=== PATIENT | female | born 1985 | race African-American/Black ===

== ENCOUNTER 2022-07-27 18:43 | Emergency (ER) | payer OTHER, SELFPAY ==
[2022-07-27 18:51] VITALS: BP 179/110; PULSE 114; RESP 20; TEMP 36.8; O2SAT 97; BMI 40.5
[2022-07-27 22:15] VITALS: BP 173/112; PULSE 88; RESP 18; TEMP 36.2; O2SAT 99
--- NOTE | 2022-07-27 22:32 | PC.NURSE ---
pt c/o bumps and itching in back of head (scalp) and neck [facility] came in to the building she resides in for reasons unknown to her concerned she might have mites aox4 no apparent distress resting quietly w/ s/o at bedside
--- NOTE | 2022-07-27 22:39 | ED_ITS ---
HPI - General Adult General Chief complaint: General Medical Stated complaint: Scabs back of neck/head Time Seen by Provider: 07/27/22 22:09 Source: patient Mode of arrival: ambulatory Limitations: no limitations History of Present Illness HPI narrative: 37-year-old female complaining of itchiness and dry scan on the back of her neck at the hairline, patient was shaving part of her then start to become itchy and bumpy now. Related Data Previous Rx's Medication Instructions Recorded mupirocin 2 % topical ointment 1 appl topical TID #22 grams 07/27/22 Allergies Allergy/AdvReac Type Severity Reaction Status Date / Time acetaminophen [From TYLENOL] Allergy Unknown ITCHY Unverified 11/22/19 15:41 codeine [CODEINE] Allergy Unknown RASH Unverified 11/22/19 15:41 Review of Systems Review of Systems: all other systems are reviewed and are negative Constitutional: Reports as per HPI and Reports no additional constitutional complaints Eyes: Reports as per HPI and Reports no additional eye complaints Reports system reviewed and no additional complaints, except as documented Cardiovascular: Reports as per HPI and Reports no additional cardiovascular complaints Respiratory: Reports as per HPI and Reports no additional respiratory complaints Gastrointestinal: Reports as per HPI and Reports no additional gastrointestinal complaints Genitourinary: Reports no additional female genitourinary complaints Musculoskeletal: Reports no additional musculoskeletal complaints Skin/Breast: Reports system reviewed and no additional complaints, except as docu Psychiatric: Reports no additional psychiatric complaints Endocrine: Reports no additional endocrine complaints Hematologic/Lymphatic: Reports no additional hematologic/lymphatic complaints Allergic/Immunologic: Reports no additional allergic/immunologic complaints Reports system reviewed and no additional complaints, except as documented and Reports Abnormal speech present [facility] Social History Social History Alcohol intake: unknown Smoked in Last 30 Days: No Use of substances other than those prescribed or required for medical reasons: Unknown Advance Directives: No Advance Directives Information Provided: No Physical Exam ED Vital Signs: Vital Signs - 24 hr 07/27/22 18:51 07/27/22 22:15 Temperature 98.3 F 97.1 F Pulse Rate 114 H 88 Respiratory Rate 20 18 Blood Pressure 179/110 H 173/112 H Pulse Oximetry 97 99 Oxygen Delivery Method Room Air Room Air BMI result Body Mass Index 40.5 vital signs have been reviewed as appeared to be correct. Blood pressure elevated. Heart rate normal. Respiration rate normal. Temperature normal. Oxygen saturation normal. Appearance: Alert. Oriented X3. No acute distress. Head: Normal external exam. Normocephalic. Atraumatic. No Donis signs noted. No raccoon eyes noted Eyes: PERRLA. EOMI. Conjunctiva and sclera normal. Eyelids normal. ENT: TM's Normal. Pharynx normal. Uvula midline. Moist mucous membranes. No trismus noted. No drooling noted. No muffled voice noted. Neck: Normal inspection. Neck supple. FROM. No adenopathy. Thyroid Normal. No meningeal signs. No neck mass noted. CVS: Normal heart rate and rhythm. Heart sound normal. No murmurs noted. Pulses normal throughout. Respiratory: No respiratory distress. Painless inspiration. Breath sounds normal. No wheezes/rales/rhonchi noted. Chest nontender. No accessory muscle usage noted or decreased air movement noted. Abdomen: Soft and nontender. Bowel sounds normal in all 4 quadrants. No distention noted. No organomegaly noted. No visible injury noted. Back: No CVA tenderness. Full range of motion noted. Skin: maculopapular rash at the hairline at the base of the scalp, no fluctuation. Extremities: No lower extremity edema. Extremities exhibit normal range of motion. Extremities nontender. Neuro: Oriented X 3. Cranial nerve exam: II-XII are grossly intact No motor deficit. No sensory deficit. Reflexes normal. Course Course Course Narrative: folliculitis will start the patient on mupirocin appointment. Patient was instructed to follow-up with her PCP for better management of her blood pressure. Medical Decision Making Differential Diagnosis Differential Diagnoses: The differential diagnosis associated with the presentation includes ( Folliculitis) Discharge Plan Discharge Clinical Impression: Folliculitis, Essential hypertension Patient Disposition: Home, Self-Care Instructions: Folliculitis (ED) Additional Instructions: for follow-up with primary doctor for outpatient blood pressure management. Prescriptions: New mupirocin 2 % ointment 1 appl topical TID Qty: 22 0RF
== END 2022-07-27 22:53 | disposition home or self-care (01) ==
PROVIDERS: Emergency Provider Emergency Medicine
DX: L73.9 Follicular disorder, unspecified (principal); I10 Essential (primary) hypertension
CPT/HCPCS: 99283; 99284

== ENCOUNTER 2022-11-04 13:47 | Emergency (ER) | payer OTHER, SELFPAY ==
[2022-11-04 14:31] VITALS: BP 180/106; BP 186/110; PULSE 116; PULSE 165; RESP 20; TEMP 37.2; O2SAT 97; O2SAT 98; BMI 31.9
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
--- OUTSIDE RECORDS SUMMARY | 2022-11-04 16:47 | XMS_ITS | Continuity of Care Document ---
Author Name Unknown Organization [facility] Address [address] [place] [address]- Care Team Providers Care Automatic Paint Sprayer Operator Name Role Phone Nisa Pierce MD Primary Care Phys[id number] Date[facility] - 11/01/20 [facility] [address] [place], [place] [address] Allergies, Adverse Reactions, Alerts Substance Reaction Severity Status codeine itchiness Active Medications amitriptyline 75 mg oral tablet 1 tablet = 75 mg, By Mouth, 2 times a day, # 60 tablet, 11 Refills, Maintenance, 02/02/16 11:28:18,Tablet Start Date: 02/02/16 Status: Ordered COMMODE COMMODE, See Instructions, # 1 each, Refills 0, Tot. Refills 0, Maintenance, Dx: Lower Ext Weakness-R29.898 and Gait Instability-R26.81, Ht: 5'4 Wt: 203 lbs, Length of need: Lifetime, 08/01/15 14:25:43, Compound Start Date: 08/01/15 Status: Ordered Cymbalta 30 mg oral enteric coated capsule 1 capsule = 30 mg, By Mouth, Daily, increase to 2 pills daily after 1 week, # 60 capsule, 2 Refills, Maintenance, 02/02/16 11:28:10, EC Capsule Start Date: 02/02/16 Status: Ordered Ibuprofen Maintenance, 11/27/13 13:52:32 Start Date: 11/27/13 Status: Ordered ProAir HFA 90 mcg/inh inhalation aerosol with adapter 2, puffs, Inhalation, Every 6 hours, PRN, # 8.5 Gm, Refills 0, Tot. Refills 0, Maintenance, 02/21/19 10:35:00 EST, Aerosol, Route to Pharmacy Electronically, [id number], [facility]/pharmacy #[id number], 162.56, cm, 02/21/19 9:48:00 EST, H... Start Date: 02/21/19 Status: Ordered raised toilet seat raised toilet seat, See Instructions, # 1 each, Refills 0, Tot. Refills 0, Maintenance, dx; chronicneck pain height; 5'4 weight; 183 lbs length of need; lifetime, 04/11/14 19:07:59, Compound Start Date: 04/11/14 Status: Ordered ranitidine 75 mg oral tablet 1 tablet = 75 mg, By Mouth, 2 times a day, take 30 minutes before meal, # 60 tablet, 11 Refills, Maintenance, 02/02/16 11:28:17, Tablet Start Date: 02/02/16 Status: Ordered ROLLATOR WALKER ROLLATOR WALKER, See Instructions, # 1 each, Refills 0, Tot. Refills 0, Maintenance, Dx: Lower Ext Weakness-R29.898 and Gait Instability-R26.81, Ht: 5'4 Wt: 203 lbs, Length of need: Lifetime, 08/01/15 14:21:42, Compound Start Date: 08/01/15 Status: Ordered Problem List Condition Effective Dates Status Health Status Inform ant Neck pain, chronic(Confirmed) Active Depression(Confirmed) Active Social History Social History Type Response Smoking Status Current every day ken taylor entered on: 02/13/14 Sex
--- OUTSIDE RECORDS SUMMARY | 2022-11-04 16:48 | XMS_ITS | Continuity of Care Document ---
Author Name Unknown Organization [facility] Adult [facility] Address [address] [place] [address]- Care Team Providers Care Equipment Washer Name Role Phone Robby Naik MD Primary Care Physician Encounter [facility] Date(s): 02/21/19 - 04/08/19 [facility] [address] [place] [address]- [facility] Attending Physician: Not on Staff, Attending MD Allergies, Adverse Reactions, Alerts Substance Reaction Severity [...] 10:35:00 EST, Aerosol, Route to Pharmacy Electronically, [id number], [facility]/pharmacy #[id number], 162.56, cm, 02/21/19 9:48:00 EST, H... [...]
--- OUTSIDE RECORDS SUMMARY | 2022-11-04 16:48 | XMS_ITS | Continuity of Care Document ---
Author Name Unknown Organization [facility] Adult [facility] Address [address] [place] [address]- Care Team Providers Care Centrifugal Separator Name Role Phone Nisa Pierce MD Primary Care Physician Encounter [facility] Date(s): 10/13/20 - 11/12/20 [facility] [address] [place], [place] [address] Attending Physician: Antonio Carey Admitting Physician: AdmAntonio high Referring Physician: AdmtrAntonio Allergies, Adverse Reactions, Alerts Substance Reaction Severity [...] 10:35:00 EST, Aerosol, Route to Pharmacy Electronically, [id number], [facility]/pharmacy #[id number], 162.56, cm, 02/21/19 9:48:00 EST, [...]
--- OUTSIDE RECORDS SUMMARY | 2022-11-04 16:48 | XMS_ITS | Continuity of Care Document ---
Author Name Unknown Organization [facility] Adult [facility] Address [address] [place] [address]- Care Team Providers Care Waste Cotton Cleaner Name Role Phone Nisa Pierce MD Primary Care [id number] Date(s): 10/02/20 - 11/12/20 [facility] [address] [place], [place] [address] Attending Physician: Herbert Morales Admitting Physician: Herbert Morales Allergies, Adverse Reactions, Alerts Substance Reaction Severity [...] 10:35:00 EST, Aerosol, Route to Pharmacy Electronically, [id number], [facility]/pharmacy #[id number], 162.56, cm, 02/21/19 9:48:00 EST, [...]
--- OUTSIDE RECORDS SUMMARY | 2022-11-04 16:48 | XMS_ITS | Continuity of Care Document ---
Author Name Unknown Organization [facility] Adult [facility] Address [address] [place] [address]- Care Team Providers Care Gynaecological Oncologist Name Role Phone Nisa Pierce MD Primary Care Physician [phone] Encounter [facility] Date(s): 03/11/22 - 04/10/22 [facility] [address] [place], [place] [address] Attending Physician: Admanila, Antonio Admitting Physician: Admtr, Ar8 Referring Physician: Admtr, Ar8 Allergies, Adverse Reactions, Alerts Substance Reaction Severity Status codeine itchiness Active Immunizations Given and Recorded Vaccine Date Status Refusal Reason SARS-CoV-2 (COVID-19) mRNA-1273 vaccine 01/20/21 R ecorded tetanus-diphtheria toxoids (Td) 10/31/12 Recorded Medications amitriptyline 75 mg oral tablet 1 [...] EC Capsule Start Date: 02/02/16 Status: Ordered gabapentin 300 mg oral capsule 300 mg, 1, capsule, By Mouth, 3 times a day, Begin taking at night time, if tolerated take up to 3x/day, # 90 capsule, Refills 1, Tot. Refills 1, Maintenance, 02/02/22 17:14:00 EST, Route to PharmacyElectronically, [facility], Par... Start Date: 02/02/22 Status: Ordered hydrOXYzine hydrochloride 25 mg oral tablet 1 capsule, By Mouth, 4 times a day, PRN for itching, # 120 capsule, 0 Refills, Maintenance, 02/02/22 17:14:00 EST, Capsule, [facility], Partial fill upon patient request if the prescription is for a schedule II opioid drug., 162.56... Start Date: 02/02/22 Status: Ordered Ibuprofen Maintenance, 11/27/13 13:52:32 Start Date: 11/27/13 Status: Ordered ProAir HFA 90 mcg/inh inhalation aerosol with adapter 2, puffs, Inhalation, Every 6 hours, PRN, # 8.5 Gm, Refills 0, Tot. Refills 0, Maintenance, 02/21/19 10:35:00 EST, Aerosol, Route to Pharmacy Electronically, [id number], [facility]/pharmacy #[id number], 162.56, cm, 02/21/19 9:48:00 EST, H... [...] Date: 08/01/15 Status: Ordered Problem List Condition Confirmation Course Effective Dates Status Health St atus Informant Neck pain, chronic Confirmed Active Depression Confirmed Active Obese class II Confirmed Active Social History Social History Type Response Smoking Status Current every day ken taylor entered on: 02/13/14 Sex Deprecated MR Spine study * Event Display: MRI Spine Authored Date: Patient Care team information Care Team Personnel Name: Nisa Pierce MD Position: [facility] Resident Member Role: PCP Address: Address: [address] [place] [address] [place] [address]- Care Team Related Persons Name: OSEI GUEVARA Address: home [address] [place] [address] [address] [place] [address]
--- OUTSIDE RECORDS SUMMARY | 2022-11-04 16:48 | XMS_ITS | Continuity of Care Document ---
Author Name Unknown Organization [facility] Adult [facility] Address [address] [place] [address]- Care Team Providers Care Quenching Car Operator Name Role Phone Robby Naik MD Primary Care Physician Encounter [facility] Date(s): 04/17/19 - 04/27/19 [facility] [address] [place] [address]- [facility] Attending Physician: AdmAntonio high Admitting Physician: AdmtrAntonio Referring Physician: Admtr, Ar8 Allergies, Adverse Reactions, [...] Start Date: 02/02/16 Status: Ordered Ibuprofen Maintenance, 09/23/14 13:52:32 Start Date: 11/27/13 Status: Ordered ProAir HFA 90 mcg/inh inhalation aerosol with adapter 2, puffs, Inhalation, Every 6 hours, PRN, # 8.5 Gm, Refills 0, Tot. Refills 0, Maintenance, 02/21/19 10:35:00 EST, Aerosol, Route to Pharmacy Electronically, [id number], [facility]/pharmacy #[id number], 162.56, cm, 02/21/19 9:48:00 EST, H... [...]
--- OUTSIDE RECORDS SUMMARY | 2022-11-04 16:48 | XMS_ITS | Continuity of Care Document ---
Author Name Unknown Organization [facility] Adult [facility] Address [address] [place] [address]- Care Team Providers Care Associate Professor Of Psychology Name Role Phone Nisa Pierce MD Primary Care Physician En[place] [facility] Date(s): 12/17/21 - 01/16/22 [facility] [address] [place] [id number] Allergies, Adverse Reactions, Alerts Substance Reaction [...] 10:35:00 EST, Aerosol, Route to Pharmacy Electronically, [id number], [facility]/pharmacy #[id number], 162.56, cm, 02/21/19 9:48:00 EST, [...] pain, chronic Confirmed Active Depression Confirmed Active Social History Social History Type Response Smoking Status Current every day ken taylor entered on: 02/13/14 Sex Patient Care team information Care Team Personnel Name: Nisa Pierce MD Position: S Resident Member Role: PCP Address: Address: [address] [place] [address] [place] [address]- Care Team Related Persons Name: OSEI GUEVARA Address: home [address] [place] [address]
--- OUTSIDE RECORDS SUMMARY | 2022-11-04 16:48 | XMS_ITS | Continuity of Care Document ---
Author Name Unknown Organization [facility] Adult [facility] Address [address] [place] [address]- Care Team Providers Care Radio Presenter Name Role Phone Nisa Pierce MD Primary Care Physician [phone] [place] [facility] Date[place]s): 01/19/22 - 04/10/22 [facility] [address] [place] [address]- Attending Physician: Yoan Dukes MD Admitting Physician: Yoan Dukes MD Allergies, Adverse Reactions, Alerts Substance Reaction [...] Maintenance, 02/02/22 17:14:00 EST, Route to PharmacyElectronically, [facility], Par... Start Date: 02/02/22 Status: Ordered hydrOXYzine hydrochloride 25 mg oral tablet 1 capsule, By Mouth, 4 times a day, PRN for itching, # 120 capsule, 0 Refills, Maintenance, 02/02/22 17:14:00 EST, Capsule, [facility], Partial fill upon patient request if the prescription is for a schedule II opioid drug., 162.56... Start Date: 02/02/22 Status: Ordered Ibuprofen Maintenance, 11/27/13 13:52:32 Start Date: 11/27/13 Status: Ordered ProAir HFA 90 mcg/inh inhalation aerosol with adapter 2, puffs, Inhalation, Every 6 hours, PRN, # 8.5 Gm, Refills 0, Tot. Refills 0, Maintenance, 02/21/19 10:35:00 EST, Aerosol, Route to Pharmacy Electronically, [id number], [facility]/pharmacy #[id number], 162.56, cm, 02/21/19 9:48:00 EST, [...] Type Response Smoking Status Current every day sm claudia entered on: 02/13/14 Sex Patient Care team information Care Team Personnel Name: Nisa Pierce MD Position: [facility] Resident Member Role: PCP Address: Address: [address] [place] [address] [place] [address]- Care Team Related Persons Name: OSEI GUEVARA Address: home [address] [place] [id number]
--- OUTSIDE RECORDS SUMMARY | 2022-11-04 16:48 | XMS_ITS | Continuity of Care Document ---
Author Name Unknown Organization [facility] Adult [facility] Address [address] [place] [address]- Care Team Providers Care Map And Chart Mounter Name Role Phone Nisa Pierce MD Primary Care Physician Encounter [facility] Date(s): 05/11/21 - 06/10/21 [facility] Adult [facility] [address] [place], [place] [address] Allergies, Adverse Reactions, Alerts Substance Reaction Severity [...] 10:35:00 EST, Aerosol, Route to Pharmacy Electronically, [id number], [facility]/pharmacy #[id number], 162.56, cm, 02/21/19 9:48:00 EST, [...]
--- OUTSIDE RECORDS SUMMARY | 2022-11-04 16:48 | XMS_ITS | Continuity of Care Document ---
Author Name Unknown Organization [facility] ter Address [address] [place] [address]- Care Team Providers Care Lapping Machine Operator Name Role Phone Robby Naik MD Primary Care Physician Encounter [facility] Date(s): 02/23/19 - 03/26/[address] [address]- [facility] Attending Physician: Roseline SOLIS, Yoan Montejo Admitting Physician: Yoan Dukes MD Referring Physician: Mike Casper DO Allergies, Adverse Reactions, Alerts Substance Reaction Severity [...] 10:35:00 EST, Aerosol, Route to Pharmacy Electronically, [id number], [facility]/pharmacy #[id number], 162.56, cm, 02/21/19 9:48:00 EST, H... [...]
--- OUTSIDE RECORDS SUMMARY | 2022-11-04 16:48 | XMS_ITS | Continuity of Care Document ---
Author Name Unknown Organization [facility] Address [address] [place] [address]- Care Team Providers Care Truck Striker Name Role Phone Nisa Pierce MD Primary Care Physician Encounter [facility] [place] Date(s): 02/02/22 - 03/04/22 [facility] [address] [place] [address]- Allergies, Adverse Reactions, Alerts Substance Reaction Severity [...] Maintenance, 02/02/22 17:14:00 EST, Route to PharmacyElectronically, [facility], Par... Start Date: 02/02/22 Status: Ordered hydrOXYzine hydrochloride 25 mg oral tablet 1 capsule, By Mouth, 4 times a day, PRN for itching, # 120 capsule, 0 Refills, Maintenance, 02/02/22 17:14:00 EST, Capsule, [facility], Partial fill upon patient request [...] 10:35:00 EST, Aerosol, Route to Pharmacy Electronically, [id number], [facility]/pharmacy #[id number], 162.56, cm, 02/21/19 9:48:00 [...] Team Personnel Name: Nisa Pierce MD Position: [facility] Resident Member Role: PCP Address: Address: [address] [place] [address] [place] [address]- Care Team Related Persons Name: OSEI GUEVARA Address: home [address] [place] [address] [address] [place] [address]
--- NOTE | 2022-11-04 17:21 | MHC.EDTECH ---
Staff spoke with this patient. Patient stated that she cannot pee yet and would like to wait till she is awake to do labwork.
--- NOTE | 2022-11-04 18:36 | PC.NURSE ---
this RN spoke with Monie Roberto from [facility]. She explained that pt is not welcome to return to the [facility] 6 program if discharged this evening. Pt has said repeatedly that she wants to leave and so far has refused labs. If pt is discharged and leaves tonight, Monie asked that we call her or Jimmy at [facility], so they are aware. Jimmy [phone] Monie Roberto [phone]
== END 2022-11-04 19:28 | disposition home or self-care (01) ==
PROVIDERS: Emergency Provider Emergency Medicine
DX: F43.20 Adjustment disorder, unspecified (principal); I10 Essential (primary) hypertension; Z63.0 Problems in relationship with spouse or partner; Z79.899 Other long term (current) drug therapy
CPT/HCPCS: 99284

== ENCOUNTER 2024-01-09 19:57 | Emergency (ER) | payer OTHER, SELFPAY ==
--- NOTE | ~2024-01-09 | CT_ITS ---
EXAMINATION: CT ANGIOGRAM CHEST CLINICAL INFORMATION: Chest pain and elevated d-dimer. COMPARISON: None available. TECHNIQUE: Multiple axial images were obtained through the chest after the administration of 65 mL of Omnipaque 350 intravenous contrast. Extensive vascular post-processing including two-dimensional and three-dimensional reformatted images were created and reviewed on an independent workstation. This CT examination was performed using dose optimization techniques as appropriate, variously including the following: *Automated exposure control *Adjustment of mA and/or kV according to patient size (this includes techniques or standardized protocols for targeted exams where dose is matched to indication/reason for exam; i.e. extremities or head) *Use of iterative reconstruction technique DLP: 232 mGy-cm FINDINGS: QUALITY OF STUDY/CONTRAST BOLUS: Satisfactory. PULMONARY ARTERIES: No pulmonary emboli. THORACIC AORTA: No aneurysm. LUNG: No focal consolidation, nodules or masses. PLEURA: No pleural effusion or pneumothorax. MEDIASTINUM: Normal heart size. No pericardial effusion. No hilar or mediastinal lymphadenopathy. No evidence of septal bowing or right heart strain. CORONARY ARTERY CALCIFICATION: None visualized on this study. CHEST WALL/AXILLA: No axillary or internal mammary lymphadenopathy. OSSEOUS STRUCTURES: No acute or suspicious osseous abnormality. UPPER ABDOMEN: Unremarkable. No reflux of contrast into the hepatic veins to suggest elevated right heart pressures. CT/CT angio chest PE protocol IMPRESSION: No evidence of pulmonary emboli. Fleischner guidelines were followed. Electronically signed by: Andrea Sosa MD 01/10/2024 06:58 AM [facility]
--- NOTE | ~2024-01-09 | US_ITS ---
EXAMINATION: US TRIPLEX LOWER EXTREMITY, BILATERAL CLINICAL INFORMATION: Edema and pain. COMPARISON: No similar priors. TECHNIQUE: Color-flow triplex imaging with spectral analysis and compression Doppler were performed on the bilateral lower extremities. FINDINGS: Respiratory variation, normal compression and augmented flow are noted throughout the bilateral lower extremities. The visualized common femoral vein, superficial femoral vein, profunda femoral vein, popliteal vein and midcalf peroneal and posterior tibial venous segments show no evidence of deep venous thrombosis bilaterally. There is no Gaxiola's cyst. Enlarged right inguinal lymph nodes with a benign-appearing morphology including preserved fatty murali, normal cortical thickness, smooth margins and reniform shape, most likely reactive in nature. US/US venous duplex LE BI IMPRESSION: No evidence of deep venous thrombosis involving the bilateral lower extremities. Electronically signed by: Lida Hope MD 01/09/2024 10:32 PM KIM
--- NOTE | ~2024-01-09 | XR_ITS ---
EXAMINATION: XR CHEST CLINICAL INFORMATION: Cough. COMPARISON: No similar priors. TECHNIQUE: Frontal view of the chest was obtained. FINDINGS: Normal appearance of the cardiomediastinal silhouette. No focal consolidation, pleural effusion or pneumothorax. No evidence of pulmonary edema. No acute osseous findings. XR/XR chest 1V IMPRESSION: No acute cardiopulmonary findings. Electronically signed by: Lida Hope MD 01/09/2024 10:23 PM KIM
--- NOTE | 2024-01-09 20:01 | ECG_ITS ---
Test Reason : CP Blood Pressure : / mmHG Vent. Rate : 100 BPM Atrial Rate : 100 BPM P-R Int : 104 ms QRS Dur : 096 ms QT Int : 354 ms P-R-T Axes : 072 -27 -14 degrees QTc Int : 456 ms Sinus rhythm with short SC Moderate voltage criteria for LVH, may be normal variant ( R in aVL , Lm product ) Nonspecific T wave abnormality Abnormal ECG When compared with ECG of 05-JAN-2005 00:34, Vent. rate has increased BY 34 BPM Questionable change in QRS duration Referred By: Alexis Monroy Electronically Signed By:ADONIS SHAFER MD
[2024-01-09 20:26] VITALS: BP 175/114; PULSE 107; RESP 20; TEMP 36.5; O2SAT 99; BMI 26.6
--- NOTE | 2024-01-09 20:28 | ED_ITS ---
HPI - General Adult General Chief complaint: Chest Pain Stated complaint: Chest Pain L Arm Pain Time Seen by Provider: 01/10/24 00:59 Source: patient Mode of arrival: ambulatory Limitations: no limitations History of Present Illness ED Provider: DR. Ruffin HPI narrative: 38-year-old female came in for evaluation of left-sided chest pain radiate to the left arm, pain has been intermittent with tip of left fingers numbness and tingling, pain started 4 days ago, not exertional no clear aggravating or relieving factors, patient is a smoker and use cocaine occasionally. No recent travel, no recent prolonged immobilization, no history of DVT or PE. No alcohol use. Related Data Home Medications ?Medication ?Instructions ?Recorded ?Confirmed gabapentin 300 mg capsule 300 mg PO QD-TID PRN Anxiety 11/04/22 11/04/22 Allergies Allergy/AdvReac Type Severity Reaction Status Date / Time acetaminophen [From TYLENOL] Allergy Unknown ITCHY Verified 01/09/24 20:28 codeine [CODEINE] Allergy Unknown RASH Verified 01/09/24 20:28 Review of Systems 2 Review of Systems: All other systems are reviewed and are negative Constitutional: Reports as per HPI and Reports no additional constitutional complaints Eyes: Reports as per HPI and Reports no additional eye complaints Reports system reviewed and no additional complaints, except as documented Cardiovascular: Reports as per HPI and Reports no additional cardiovascular complaints Respiratory: Reports as per HPI and Reports no additional respiratory complaints Gastrointestinal: Reports as per HPI and Reports no additional gastrointestinal complaints Genitourinary: Reports no additional female genitourinary complaints Musculoskeletal: Reports no additional musculoskeletal complaints Skin/Breast: Reports system reviewed and no additional complaints, except as docu Psychiatric: Reports no additional psychiatric complaints Endocrine: Reports no additional endocrine complaints Hematologic/Lymphatic: Reports no additional hematologic/lymphatic complaints Allergic/Immunologic: Reports no additional allergic/immunologic complaints Reports system reviewed and no additional complaints, except as documented and Reports Abnormal speech present [facility] Social History Social History Alcohol intake: former Smoked in Last 30 Days: No Use of substances other than those prescribed or required for medical reasons: Yes Substance Use Type: Marijuana Substance Use Frequency: Occasionally Advance Directives: No Advance Directives Information Provided: No Patient : No Physical Exam ED Vital Signs: Vital Signs - 24 hr 01/09/24 20:26 01/10/24 00:49 01/10/24 03:33 Temperature 97.7 F 98.6 F 98.5 F Pulse Rate 107 H 90 82 Respiratory Rate 20 12 18 Blood Pressure 175/114 H 139/92 H 160/102 H Pulse Oximetry 99 98 97 Oxygen Delivery Method Room Air Room Air Room Air BMI result Body Mass Index 26.6 Vital signs have been reviewed and appear to be correct. Blood pressure elevated. Heart rate normal. Respiratory rate normal. Temperature normal. Oxygen saturation normal. Appearance: Alert. Oriented X3. No acute distress. Head: Normal external exam. Normocephalic. Atraumatic. No Donis signs noted. No raccoon eyes noted Eyes: PERRLA. EOMI. Conjunctiva and sclera normal. Eyelids normal. ENT: TM's Normal. Pharynx normal. Uvula midline. Moist mucous membranes. No trismus noted. No drooling noted. No muffled voice noted. Neck: Normal inspection. Neck supple. FROM. No adenopathy. Thyroid Normal. No meningeal signs. No neck mass noted. CVS: Normal heart rate and rhythm. Heart sound normal. No murmurs noted. Pulses normal throughout. Respiratory: No respiratory distress. Painless inspiration. Breath sounds normal. No wheezes/rales/rhonchi noted. Chest nontender. No accessory muscle usage noted or decreased air movement noted. Abdomen: Soft and nontender. Bowel sounds normal in all 4 quadrants. No distention noted. No organomegaly noted. No visible injury noted. Back: No CVA tenderness. Full range of motion noted. Skin: Skin warm and dry. Normal skin color. Normal skin turgor. No rashes/lesions/lacerations noted. Extremities: No lower extremity edema. Extremities exhibit normal range of motion. Extremities nontender. Neuro: Oriented X 3. Cranial nerve exam: II-XII are grossly intact No motor deficit. No sensory deficit. Reflexes normal. Course Course Course Narrative: RME: 38 yold female presents to the ED for chest pain, SOB, bilateral leg swelling, and left arm pain. No recent travel recent surgery or recent trauma. EKG labs x-ray ordered. Reevaluation(s) Reevaluation #1: Chest pain for 4 days that is intermittent not exertional negative troponin, EKG is none ischemic, with no change from previous EKG. D-dimer is elevated, with no risk for PE/DVT CT angio of the chest shows no pulmonary embolism. Incidental LFTs elevation patient was instructed to follow-up with her PCP for further workup for elevated LFTs patient has no right upper quadrant abdominal pain or tenderness on exam. Time: 02:00 Medications Administered Discontinued Medications Generic Name Dose Route Start Last Admin Trade Name Freq PRN Reason Stop Dose Admin Iohexol 65 ml 01/10/24 04:08 01/10/24 04:09 Iohexol 350 Mg/Ml 100 Ml Infus..Btl IV 01/10/24 04:09 65 ml ONCE ONE Administration Medical Decision Making Differential Diagnosis Differential Diagnoses: The differential diagnosis associated with the presentation includes (ACS, pneumonia, pneumothorax, pleural effusion, pulmonary embolism electrolyte derangement, severe anemia.) Lab Data MDM Lab Attestation statement: I reviewed the patient's lab results. 01/09/24 20:18 01/09/24 20:18 Labs: Lab Results 01/09/24 01/10/24 Range/Units 20:18 01:37 WBC 5.3 (4.8-10.8) X10*3/uL RBC 4.50 (4.20-5.50) X10*6/uL Hgb 13.4 (12.0-16.0) g/dl Hct 39.6 (37.0-47.0) % MCV 88.0 (80.0-98.0) fL MCH 29.8 (27.0-33.0) pg MCHC 33.8 (31.0-35.0) g/dl RDW 14.5 (11.0-16.0) % Plt Count 221 (160-400) X10*3/uL MPV 9.1 L (9.4-12.3) fL Immature Gran % (Auto) Cancelled Neut % (Auto) Cancelled Lymph % (Auto) Cancelled Appling % (Auto) Cancelled Eos % (Auto) Cancelled Baso % (Auto) Cancelled Lymph # (Auto) Cancelled Appling # (Auto) Cancelled Eos # (Auto) Cancelled Baso # (Auto) Cancelled Abs Immat Gran (auto) Cancelled Absolute Neuts (auto) Cancelled Absolute Nucleated RBC 0.000 (0.0-0.012) X10*3/uL Nucleated RBC % (auto) 0.0 (0.0-0.2) /100WBC Neutrophils % (Manual) 30 L (45-73) % Band Neutrophils % 2 L (3-5) % Lymphocytes % (Manual) 41 H (20-40) % Atypical Lymphs % (Man) 14 H (0-6) % Monocytes % (Manual) 12 H (2-11) % Basophils % (Manual) 1 (0-2) % Abs Neuts (Manual) 1.7 L (2.0-8.3) X10*3/uL Lymphocytes # (Manual) 2.2 (1.2-4.9) X10*3/uL Atyp Lymphs # (Manual) 0.7 x10*3/uL Monocytes # (Manual) 0.6 (0.1-1.2) X10*3/uL Basophils # (Manual) 0.1 (0.0-0.2) X10*3/uL Smudge Cells PRESENT Toxic Vacuolation PRESENT Platelet Estimate NORMAL (NORMAL) Plt Morphology Comment NORMAL RBC Morphology NOTED Jorge Luis Cells 1+ (0-2) /OIF Smear Tech's Comments MANUAL DIFF PT 11.6 (10.9-12.4) SEC INR 1.0 (0.9-1.1) APTT 34.1 (26.0-36.8) SEC D-Dimer High Sensitivty 1413 NG/ML Sodium 139 (135-145) mmol/L Potassium 3.9 (3.3-5.1) mmol/L Chloride 103 (96-108) mmol/L Carbon Dioxide 29 (22-29) mmol/L Anion Gap 11 L (12-20) BUN 13 (9-16) mg/dL Creatinine 0.97 (0.5-1.4) mg/dL Estim Creat Clear Calc 72.8 Estimated GFR > 60 Random Glucose 91 (60-115) mg/dL Calcium 8.9 (8.4-10.2) mg/dL Total Bilirubin 0.2 (0.0-1.0) mg/dL AST 84 H (5-31) U/L ALT 74 H (0-31) U/L Alkaline Phosphatase 132 H (39-117) U/L Troponin I High Sens < 2.7 2.8 (<3.5-17.0) ng/L B-Natriuretic Peptide 113 H (<100) pg/mL Total Protein 7.2 (6.5-8.0) g/dL Albumin 3.5 (3.5-5.0) g/dL Beta HCG, Quant < 2 mIU/mL Independent Interpretation I performed an independent interpretation of an: Plain X-Ray (Chest: No acute cardiopulmonary findings.), Ultrasound (Venous ultrasound bilateral lower extremity: No DVT) and CT Scan (CT angiogram chest: No evidence of pulmonary embolism.) Radiology Impression Discussion of test interpretation with radiology: I have reviewed the radiologist's reading. Discharge Plan Discharge Clinical Impression: Chest pain, Elevated LFTs Patient Disposition: Home, Self-Care Instructions: Chest Pain (ED) Additional Instructions: Follow-up with your PCP to evaluate for liver function test elevation. Prescriptions: No Action gabapentin 300 mg capsule 300 mg PO QD-TID PRN (Reason: Anxiety) Discharge Date/Time: 01/10/24 07:36 Print Language: Frisian
[2024-01-09 20:30] LABS: Hematocrit 39.6 % (37.0-47.0); Hemoglobin 13.4 g/dl (12.0-16.0); Mean Corpuscular HGB Conc 33.8 g/dl (31.0-35.0); Mean Corpuscular Hemoglobin 29.8 pg (27.0-33.0); Mean Platelet Volume 9.1 fL (9.4-12.3); Platelet Count 221 X10*3/uL (160-400); Red Cell Distribution Width 14.5 % (11.0-16.0); White Blood Count 5.3 X10*3/uL (4.8-10.8)
[2024-01-09 20:32] LABS: SLIDE REVIEW MANUAL DIFF
[2024-01-09 20:35] LABS: Prothrombin Time 11.6 SEC (10.9-12.4)
[2024-01-09 20:38] LABS: Partial Thromboplastin Time 34.1 SEC (26.0-36.8)
[2024-01-09 20:45] LABS: Alanine Aminotransferase 74 U/L (0-31); Albumin Level 3.5 g/dL (3.5-5.0); Alkaline Phosphatase 132 U/L (39-117); Anion Gap 11 (12-20); Aspartate Amino Transferase 84 U/L (5-31); Bilirubin Total 0.2 mg/dL (0.0-1.0); Blood Urea Nitrogen 13 mg/dL (9-16); Calcium 8.9 mg/dL (8.4-10.2); Carbon Dioxide 29 mmol/L (22-29); Chloride 103 mmol/L (96-108); Creatinine Clr Calc Pharmacy 72.8; Estimated Glomerular Filt Rate > 60; Glucose Random 91 mg/dL (60-115); Potassium 3.9 mmol/L (3.3-5.1); Sodium 139 mmol/L (135-145); Total Protein 7.2 g/dL (6.5-8.0)
[2024-01-09 20:50] LABS: B Type Natriuretic Peptide 113 pg/mL (<100)
[2024-01-09 20:53] LABS: Troponin-I High Sensitivity < 2.7 ng/L (<3.5-17.0)
[2024-01-09 20:54] LABS: Atypical Lymph Absolute Manual 0.7 x10*3/uL; Atypical Lymphs Percent Manual 14 % (0-6); Band Neutrophils Percent 2 % (3-5); Basophils Abs Manual 0.1 X10*3/uL (0.0-0.2); Basophils Percent Manual 1 % (0-2); Lymphocytes Absolute Manual 2.2 X10*3/uL (1.2-4.9); Lymphocytes Percent Manual 41 % (20-40); Monocytes Absolute Manual 0.6 X10*3/uL (0.1-1.2); Monocytes Percent Manual 12 % (2-11); Neutrophils Absolute Manual 1.7 X10*3/uL (2.0-8.3); Neutrophils Percent Manual 30 % (45-73)
[2024-01-09 20:55] LABS: RBC Morphology NOTED; Smudge Cells PRESENT; Toxic Vacuolation PRESENT
[2024-01-09 20:58] LABS: Burr Cells 1+ (0-2) /OIF; Platelet Estimate NORMAL (NORMAL); Platelet Morphology Comment NORMAL
[2024-01-10 00:49] VITALS: BP 139/92; PULSE 90; RESP 12; TEMP 37; O2SAT 98
--- OUTSIDE RECORDS SUMMARY | 2024-01-10 00:52 | XMS_ITS | Continuity of Care Document ---
Author Organization [facility] Adult [facility] Address [address] [place] [address]- Care Team Providers Care Pc Analyst Name Role Phone Leonardo López MD Primary Care Physician [phone] En[place] [facility] [place] [id number] Date(s): 10/11/23 - 12/03/23 [facility] [address] [place], [place] [phone] Attending Physician: Yoan Dukes MD Admitting Physician: [...] Status: Ordered gabapentin 300 mg oral capsule 1, capsule, By Mouth, 3 times a day, as tolerated., # 90 capsule, Refills 1, Maintenance, 12/08/22 19:16:00 EDT, Route to Pharmacy Electronically, [facility], 162.56, cm, 01/18/2217:30:00 EST, Height Start Date: 12/08/22 Status: Ordered hydrOXYzine hydrochloride 25 mg oral tablet 1 capsule, By Mouth, 4 times a day, PRN for itching, # 120 capsule, 0 Refills, Maintenance, 02/02/22 17:14:00 EST, Capsule, [facility], Partial fill upon patient request [...] 10:35:00 EST, Aerosol, Route to Pharmacy Electronically, [id number], [facility]/pharmacy #[id number], 162.56, cm, 02/21/19 9:48:00 [...] Refills, Maintenance, 02/02/16 11:28:17, Tablet Start Date: 11/28/16 Status: Ordered ROLLATOR WALKER ROLLATOR WALKER, See [...] Care team information Care Team Personnel Name: Leonardo López MD Position: S Resident Member Role: PCP Address: Address: [address] [place] [address]- Care Team Related Persons Name: OSEI GUEVARA Address: home [address] [place] [address]
--- OUTSIDE RECORDS SUMMARY | 2024-01-10 00:52 | XMS_ITS | Continuity of Care Document ---
Author Organization [facility] Adult [facility] Address [address] [place] [address]- Care Team Providers Care Heel Seat Fitter Name Role Phone Rene SOLIS, Leonardo Primary Care Physician [phone] Encounter [facility] [place] Date(s): 08/16/23 - 09/15/23 [facility] [address] [place], [place] [phone] Allergies, Adverse Reactions, Alerts Substance Reaction Severity [...] 12/08/22 19:16:00 EDT, Route to Pharmacy Electronically, [facility], 162.56, cm, 01/18/2217:30:00 EST, Height [...] 10:35:00 EST, Aerosol, Route to Pharmacy Electronically, [id number], [facility]/pharmacy #[id number], 162.56, cm, 02/21/19 [...] Response Smoking Status Current every day sm oker entered on: 02/13/14 Sex Patient Care team information Care Team Personnel Name: Leonardo López MD Position: [facility] Resident Member Role: PCP Address: Address: [address] [place] [address]- Care Team Related Persons Name: OSEI GUEVARA Address: [address] [address]
--- OUTSIDE RECORDS SUMMARY | 2024-01-10 00:52 | XMS_ITS | Continuity of Care Document ---
Author Organization [facility] Adult [facility] Address [address] [place] [address]- Care Team Providers Care Proofer Name Role Phone Leonardo López MD Primary Care Physician [phone] [place] [facility] [place]23 - 11/04/23 [facility] [address] [place], [place] [phone] Allergies, Adverse Reactions, Alerts Substance Reaction Severity [...] 12/08/22 19:16:00 EDT, Route to Pharmacy Electronically, [facility], 162.56, cm, 01/18/2217:30:00 EST, Height Start Date: 12/08/22 Status: Ordered hydrOXYzine hydrochloride 25 mg oral tablet 1 capsule, By Mouth, 4 times a day, PRN for itching, # 120 capsule, 0 Refills, Maintenance, 02/02/22 17:14:00 EST, Capsule, [facility], Partial fill upon patient request [...] 10:35:00 EST, Aerosol, Route to Pharmacy Electronically, [id number], [facility]/pharmacy #[id number], 162.56, cm, 02/21/19 9:48:00 EST, [...] S Resident Member Role: PCP Address: Address: [address] [place] [address]- Care Team Related Persons Name: OSEI GUEVARA Address: home [address] [place] [address]
--- OUTSIDE RECORDS SUMMARY | 2024-01-10 00:52 | XMS_ITS | Continuity of Care Document ---
Author Organization [facility] Adult [facility] Address [address] [place] [address]- Care Team Providers Care Stencil Maker Name Role Phone Leonardo López MD Primary Care Physician [phone] Encounter [facility] [place] [place] Date(s): 10/11/23 - 11/11/23 [facility] [address] [place], [place] [phone] Attending Physician: Not on Staff, Attending MD Allergies, Adverse Reactions, Alerts Substance Reaction Severity Status codeine itchiness Active Immunizations Given and Recorded Vaccine Date Status Refusal Reason SARS-CoV-2 (COVID-19) mRNA-0070 vaccine 01/20/21 R ecorded tetanus-diphtheria toxoids (Td) [...] 12/08/22 19:16:00 EDT, Route to Pharmacy Electronically, [facility], 162.56, cm, 01/18/2217:30:00 EST, Height Start Date: 12/08/22 Status: Ordered hydrOXYzine hydrochloride 25 mg oral tablet 1 capsule, By Mouth, 4 times a day, PRN for itching, # 120 capsule, 0 Refills, Maintenance, 02/02/22 17:14:00 EST, Capsule, [facility], Partial fill upon patient request if the prescription is for a schedule II opioid drug., 162.56... Start Date: 02/02/22 Status: Ordered Ibuprofen Maintenance, 11/27/13 13:52:32 Start Date: 11/27/13 Status: Ordered ProAir HFA 90 mcg/inh inhalation aerosol with adapter 2, puffs, Inhalation, Every 6 hours, PRN, # 8.5 Gm, Refills 0, Tot. Refills 0, Maintenance, 02/21/19 10:35:00 EST, Aerosol, Route to Pharmacy Electronically, [id number], [facility]/pharmacy #[id number], 162.56, cm, 02/21/19 9:48:00 EST, H... [...] Team Personnel Name: Leonardo López MD Position: [facility] Resident Member Role: PCP Address: Address: [address] [place] [address]- Care Team Related Persons Name: OSEI GUEVARA Address: home [address] [place] [address]
--- OUTSIDE RECORDS SUMMARY | 2024-01-10 00:52 | XMS_ITS | Continuity of Care Document ---
Author Organization [facility] Adult [facility] Address [address] [place] [address]- Care Team Providers Care Wire Mesh Gate Assembler Name Role Phone Nisa Pierce MD Primary Care Physician Encounter [facility] [place] Date(s): 08/03/23 - 09/02/23 [facility] [address] [place], [place] [phone] Allergies, Adverse Reactions, Alerts Substance Reaction Severity [...] 12/08/22 19:16:00 EDT, Route to Pharmacy Electronically, [facility], 162.56, cm, 01/18/2217:30:00 EST, Height Start Date: 12/08/22 Status: Ordered hydrOXYzine hydrochloride 25 mg oral tablet 1 capsule, By Mouth, 4 times a day, PRN for itching, # 120 capsule, 0 Refills, Maintenance, 02/02/22 17:14:00 EST, Capsule, [facility], Partial fill upon patient request [...] 10:35:00 EST, Aerosol, Route to Pharmacy Electronically, [id number], [facility]/pharmacy #[id number], 162.56, cm, 02/21/19 9:48:00 EST, H... [...] Team Personnel Name: Nisa Pierce MD Position: [facility] Resident Member Role: PCP Address: Address: [address] [place] [address] [place] [address]- Care Team Related Persons Name: OSEI GUEVARA Address: home [address] [place] [address]
--- OUTSIDE RECORDS SUMMARY | 2024-01-10 00:52 | XMS_ITS | Continuity of Care Document ---
Author Organization [facility] Adult [facility] Address [address] [place] [address]- Care Team Providers Care Special Library Librarian Name Role Phone Leonardo López MD Primary Care Physician Encounter [facility] [place] Date(s): 10/11/23 - 11/10/23 [facility] Adult [facility] [address] [place], [place] [phone] Allergies, Adverse Reactions, Alerts Substance Reaction Severity [...] 12/08/22 19:16:00 EDT, Route to Pharmacy Electronically, [facility], 162.56, cm, 01/18/2217:30:00 EST, Height Start Date: 12/08/22 Status: Ordered hydrOXYzine hydrochloride 25 mg oral tablet 1 capsule, By Mouth, 4 times a day, PRN for itching, # 120 capsule, 0 Refills, Maintenance, 02/02/22 17:14:00 EST, Capsule, [facility], Partial fill upon patient request [...] 10:35:00 EST, Aerosol, Route to Pharmacy Electronically, [id number], [facility]/pharmacy #[id number], 162.56, cm, 02/21/19 9:48:00 EST, [...] S Resident Member Role: PCP Address: Address: [address] [place] [address]- Care Team Related Persons Name: OSEI GUEVARA Address: home [address] [place] [address]
--- OUTSIDE RECORDS SUMMARY | 2024-01-10 00:52 | XMS_ITS | Continuity of Care Document ---
Author Organization [facility] Address [address] [place] [address]- Care Team Providers Care Field Crop Farmer Name Role Phone Leonardo López MD Primary Care Physician Encounter [facility] Date(s): 11/03/23 - 12/03/23 [facility] [address] [place], [place] [phone] Attending Physician: AdmAntonio high Admitting Physician: Admtr [id number] Referring Physician: Admtr, Ar8 Allergies, Adverse [...] 12/08/22 19:16:00 EDT, Route to Pharmacy Electronically, [facility], 162.56, cm, 01/18/2217:30:00 EST, Height Start Date: 12/08/22 Status: Ordered hydrOXYzine hydrochloride 25 mg oral tablet 1 capsule, By Mouth, 4 times a day, PRN for itching, # 120 capsule, 0 Refills, Maintenance, 02/02/22 17:14:00 EST, Capsule, [facility], Partial fill upon patient request [...] 10:35:00 EST, Aerosol, Route to Pharmacy Electronically, [id number], [facility]/pharmacy #[id number], 162.56, cm, 02/21/19 9:48:00 EST, H... [...] Type Response Smoking Status Current every day claudia entered on: 02/13/14 Sex MR Spine * Event Display: MRI Spine Authored Date: Patient Care team information Care Team Personnel Name: Leonardo López MD Position: [facility] Resident Member Role: PCP Address: Address: [address] [place] [id number]- Care Team Related Persons Name: OSEI GUEVARA Address: [address] [address]
--- OUTSIDE RECORDS SUMMARY | 2024-01-10 00:52 | XMS_ITS | Continuity of Care Document ---
Author Organization [facility] Address [address] [place] [address]- Care Team Providers Care Pot Firer Name Role Phone Leonardo López MD Primary Care Physician Encounter [facility] Date(s): 08/16/23 - 11/04/23 [facility] [address] [place], [place] [phone] Attending Physician: Chani Christianson NP Admitting Physician: Chani Christianson NP Allergies, Adverse Reactions, Alerts Substance Reaction Severity [...] 12/08/22 19:16:00 EDT, Route to Pharmacy Electronically, [facility], 162.56, cm, 01/18/2217:30:00 EST, Height Start Date: 12/08/22 Status: Ordered hydrOXYzine hydrochloride 25 mg oral tablet 1 capsule, By Mouth, 4 times a day, PRN for itching, # 120 capsule, 0 Refills, Maintenance, 02/02/22 17:14:00 EST, Capsule, [facility], Partial fill upon patient request [...] 10:35:00 EST, Aerosol, Route to Pharmacy Electronically, [id number], [facility]/pharmacy #[id number], 162.56, cm, 02/21/19 9:48:00 EST, H... [...] Team Personnel Name: Leonardo López MD Position: [facility] Resident Member Role: PCP Address: Address: [address] [place] [address]- Care Team Related Persons Name: OSEI GUEVARA Address: home [address] [place] [id number]
--- NOTE | 2024-01-10 01:17 | ECG_ITS ---
Test Reason : CP REPEAT Blood Pressure : / mmHG Vent. Rate : 080 BPM Atrial Rate : 080 BPM P-R Int : 126 ms QRS Dur : 098 ms QT Int : 364 ms P-R-T Axes : 064 -27 -27 degrees QTc Int : 419 ms Normal sinus rhythm Moderate voltage criteria for LVH, may be normal variant ( R in aVL , Lm product ) Nonspecific T wave abnormality Abnormal ECG When compared with ECG of 09-JAN-2024 20:06, No significant change was found Referred By: Radha Ruffin Electronically Signed By:ADONIS SHAFER MD
[2024-01-10 01:59] LABS: D Dimer High Sensitivity 1413 NG/ML
[2024-01-10 02:00] LABS: Troponin-I High Sensitivity 2.8 ng/L (<3.5-17.0)
[2024-01-10 03:33] VITALS: BP 160/102; PULSE 82; RESP 18; TEMP 36.9; O2SAT 97
[2024-01-10 03:49] LABS: HCG Quantitative < 2 mIU/mL
[2024-01-10] MEDS: iohexoL 350 MG/ML 100 ML INFUS..BTL 65 ML IV (04:09)
--- NOTE | 2024-01-10 04:28 | PC.NURSE ---
Patient is alert and oriented x4, able to make her needs known. Patient denies any pain at present. 20 G IV access established in R AC. D-dimer 1413. 20 G IV line established in R AC.Chest CTA completed. Patient currently resting in a hospital bed, caregiver at bedside, call eason in patient's reach. Plan of care ongoing.
--- NOTE | 2024-01-10 07:34 | PC.NURSE ---
patient visitor noted to be sleeping in the same bed as patient, visitor asked to get out of patient stretcher due to it being a safety issue. patient then started yelling and threatening this RN. staff and security alerted to situation. ED clinical human resources supervisor alerted to situation. human resources supervisor removed patient IV, patient visitor then started yelling and threatening this RN. patient given DC paperwork by this RN refused DC vitals
== END 2024-01-10 07:36 | disposition home or self-care (01) ==
PROVIDERS: Physician Assistant; Emergency Provider Emergency Medicine
DX: R07.89 Other chest pain (principal); M79.602 Pain in left arm; R79.89 Other specified abnormal findings of blood chemistry; R60.0 Localized edema; R06.02 Shortness of breath; Z79.899 Other long term (current) drug therapy
CPT/HCPCS: 36415; 71045; 71275; 80053; 83880; 84484; 84702; 85007; 85027; 85379; 85610; 85730; 93005; 93970; 99284; 99285; Q9967

== ENCOUNTER → 2024-01-09 20:01 | Outpatient (BNV) | payer OTHER, SELFPAY | PROVIDERS: Emergency Provider Emergency Medicine; Visit Provider Internal Medicine Cardiovascular Disease | DX: R07.9 Chest pain, unspecified (principal); R94.31 Abnormal electrocardiogram [ECG] [EKG] | CPT/HCPCS: 93010 ==

== ENCOUNTER → 2024-01-10 01:17 | Outpatient (BNV) | payer OTHER, SELFPAY | PROVIDERS: Emergency Provider Emergency Medicine; Visit Provider Internal Medicine Cardiovascular Disease | DX: R07.9 Chest pain, unspecified (principal); R94.31 Abnormal electrocardiogram [ECG] [EKG] | CPT/HCPCS: 93010 ==

== ENCOUNTER 2024-09-05 12:52 | Emergency (ER) | payer OTHER, SELFPAY ==
--- NOTE | ~2024-09-05 | US_ITS ---
EXAMINATION: US LOWER EXTREMITY VEINS LIMITED FOLLOW UP LEFT HISTORY: pain and swelling COMPARISON: Comparison is made with the prior examination dated 01/09/2024. TECHNIQUE: Duplex and color Doppler sonographic examination of the deep venous system of the left lower extremity was performed. FINDINGS: The common femoral, superficial femoral, and popliteal veins are patent demonstrating normal compressibility, spontaneous flow, and augmentation. There is a normal color and spectral Doppler waveform appearance of the visualized deep venous system above the knee. The posterior tibial and peroneal veins are patent. Incidental note is made of multiple prominent lymph nodes in the left inguinal region. US/US venous duplex LE LT IMPRESSION: No evidence of acute DVT in the left lower extremity. Electronically signed by: Harjit Villar MD 09/05/2024 03:17 PM EDT
[2024-09-05 12:56] VITALS: BP 147/90; PULSE 99; RESP 18; TEMP 36.9; O2SAT 96; BMI 31.8
--- NOTE | 2024-09-05 12:57 | ED.GENADULT ---
HPI - General Adult General Chief complaint: Extremity Injury, Lower Stated complaint: left leg pain swollen / fever 105 Time Seen by Provider: 09/05/24 13:52 Related Data Home Medications ?Medication ?Instructions ?Recorded ?Confirmed gabapentin 300 mg capsule 300 mg PO QD-TID PRN Anxiety 11/04/22 11/04/22 Previous Rx's ?Medication ?Instructions ?Recorded doxycycline hyclate 100 mg capsule 100 mg PO BID cough 7 days #14 caps 09/05/24 Allergies Allergy/AdvReac Type Severity Reaction Status Date / Time acetaminophen (From TYLENOL) Allergy Unknown ITCHY Verified 09/05/24 12:59 codeine (CODEINE) Allergy Unknown RASH Verified 09/05/24 12:59 [facility] Social History Social History Alcohol intake: former Substance Use Type: Marijuana Advance Directives: No Advance Directives Information Provided: Yes Do you have a plan to hurt others: No Plan Physical Exam ED Vital Signs: Vital Signs - 24 hr 09/05/24 12:56 09/05/24 15:09 Temperature 98.4 F 98.5 F Pulse Rate 99 108 H Respiratory Rate 18 14 Blood Pressure 147/90 H 122/86 Pulse Oximetry 96 96 Oxygen Delivery Method Room Air BMI result Body Mass Index 31.8 Course Course Course Narrative: RME, this is a rapid medical exam performed by Reginaldo Segura please refer to primary provider for complete H&P- 39-year-old female presents for evaluation of left leg pain and swelling. She has a sed from erythema consistent with cellulitis. Plan for labs including blood cultures. We will also get an ultrasound of the left lower extremity. Afebrile in triage Medications Administered Discontinued Medications Generic Name Dose Route Start Last Admin Trade Name Freq PRN Reason Stop Dose Admin Ceftriaxone Sodium 1 gm 09/05/24 14:31 09/05/24 15:14 Ceftriaxone Sodium 1 Gm Vial IVPUSH 09/05/24 14:32 1 gm ONCE ONE Administration Medical Decision Making Lab Data 09/05/24 13:28 09/05/24 13:28 Labs: Lab Results 09/05/24 Range/Units 13:28 WBC 7.1 (4.8-10.8) X10*3/uL RBC 4.25 (4.20-5.50) X10*6/uL Hgb 12.3 (12.0-16.0) g/dl Hct 36.5 L (37.0-47.0) % MCV 85.9 (80.0-98.0) fL MCH 28.9 (27.0-33.0) pg MCHC 33.7 (31.0-35.0) g/dl RDW 17.0 H (11.0-16.0) % Plt Count 159 L D (160-400) X10*3/uL MPV 9.4 (9.4-12.3) fL Immature Gran % (Auto) Cancelled Neut % (Auto) Cancelled Lymph % (Auto) Cancelled [place] % (Auto) Cancelled Eos % (Auto) Cancelled Baso % (Auto) Cancelled Lymph # (Auto) Cancelled [place] # (Auto) Cancelled Eos # (Auto) Cancelled Baso # (Auto) Cancelled Abs Immat Gran (auto) Cancelled Absolute Neuts (auto) Cancelled Absolute Nucleated RBC 0.000 (0.0-0.012) X10*3/uL Nucleated RBC % (auto) 0.0 (0.0-0.2) /100WBC Neutrophils % (Manual) 81 H (45-73) % Band Neutrophils % 2 L (3-5) % Lymphocytes % (Manual) 9 L (20-40) % Atypical Lymphs % (Man) 1 (0-6) % Monocytes % (Manual) 5 (2-11) % Eosinophils % (Manual) 2 (0-4) % Abs Neuts (Manual) 5.9 (2.0-8.3) X10*3/uL Lymphocytes # (Manual) 0.6 L (1.2-4.9) X10*3/uL Atyp Lymphs # (Manual) 0.1 x10*3/uL Monocytes # (Manual) 0.4 (0.1-1.2) X10*3/uL Eosinophils # (Manual) 0.1 (0.0-0.4) X10*3/uL Platelet Estimate NORMAL (NORMAL) Plt Morphology Comment NORMAL RBC Morphology NORMAL ESR 72 H (0-20) MM/HR Sodium 139 (135-145) mmol/L Potassium 3.4 (3.3-5.1) mmol/L Chloride 102 (96-108) mmol/L Carbon Dioxide 30 H (22-29) mmol/L Anion Gap 10 L (12-20) BUN 10 (9-16) mg/dL Creatinine 0.94 (0.5-1.4) mg/dL Estim Creat Clear Calc 81.2 Estimated GFR > 60 Random Glucose 102 (60-115) mg/dL Lactic Acid 0.7 (0.5-2.0) mmol/L Calcium 8.8 (8.4-10.2) mg/dL Total Bilirubin 0.5 (0.0-1.0) mg/dL AST 42 H (5-31) U/L ALT 48 H (0-31) U/L Alkaline Phosphatase 95 (39-117) U/L C-Reactive Protein 20.46 H (< or = 0.50) mg/dL Total Protein 7.0 (6.5-8.0) g/dL Albumin 3.4 L (3.5-5.0) g/dL Lipase 7 L (8-78) U/L Beta HCG, Quant < 2 mIU/mL Discharge Plan Discharge Clinical Impression: Cellulitis Patient Disposition: Left Against Medical Advice Instructions: Cellulitis (ED), Warm Compress or Soak (ED) Prescriptions: New doxycycline hyclate 100 mg capsule 100 mg PO BID 7 Days Qty: 14 0RF No Action gabapentin 300 mg capsule 300 mg PO QD-TID PRN (Reason: Anxiety) Referrals: [facility] [Physician, Medical] - 09/06/24 Referral Note: If you change your mind please come back. Your left against medical advice. Stand Alone Forms: Against Medical Advice Print Language: Romansh
[2024-09-05 13:44] LABS: Hematocrit 36.5 % (37.0-47.0); Hemoglobin 12.3 g/dl (12.0-16.0); Mean Corpuscular HGB Conc 33.7 g/dl (31.0-35.0); Mean Corpuscular Hemoglobin 28.9 pg (27.0-33.0); Mean Corpuscular Volume 85.9 fL (80.0-98.0); NRBC Abs Auto 0.000 X10*3/uL (0.0-0.012); NRBC Pct Auto 0.0 /100WBC (0.0-0.2); Platelet Count 159 X10*3/uL (160-400); Red Blood Count 4.25 X10*6/uL (4.20-5.50); White Blood Count 7.1 X10*3/uL (4.8-10.8)
[2024-09-05 14:01] LABS: Alanine Aminotransferase 48 U/L (0-31); Albumin Level 3.4 g/dL (3.5-5.0); Alkaline Phosphatase 95 U/L (39-117); Anion Gap 10 (12-20); Aspartate Amino Transferase 42 U/L (5-31); Blood Urea Nitrogen 10 mg/dL (9-16); Calcium 8.8 mg/dL (8.4-10.2); Carbon Dioxide 30 mmol/L (22-29); Chloride 102 mmol/L (96-108); Creatinine Clr Calc Pharmacy 81.2; Estimated Glomerular Filt Rate > 60; Lipase 7 U/L (8-78); Potassium 3.4 mmol/L (3.3-5.1); Sodium 139 mmol/L (135-145); Total Protein 7.0 g/dL (6.5-8.0)
[2024-09-05 14:20] LABS: Atypical Lymph Absolute Manual 0.1 x10*3/uL; Atypical Lymphs Percent Manual 1 % (0-6); Band Neutrophils Percent 2 % (3-5); Eosinophils Absolute Manual 0.1 X10*3/uL (0.0-0.4); Eosinophils Percent Manual 2 % (0-4); Lymphocytes Absolute Manual 0.6 X10*3/uL (1.2-4.9); Lymphocytes Percent Manual 9 % (20-40); Monocytes Absolute Manual 0.4 X10*3/uL (0.1-1.2); Monocytes Percent Manual 5 % (2-11); Neutrophils Absolute Manual 5.9 X10*3/uL (2.0-8.3); Neutrophils Percent Manual 81 % (45-73)
[2024-09-05 14:22] LABS: RBC Morphology NORMAL
--- OUTSIDE RECORDS SUMMARY | 2024-09-05 14:28 | XMS_ITS | Clinical Summary ---
Author Organization [facility] Address [address] [place] [address] Care Team Providers Care Field Pipe Lines Supervisor Name Role Phone Casimiro Mejia MD Primary Care Provider [phone] Surgical History Surgery Date Site/Laterality Comments OTHER SURGICAL HISTORY PROCEDURE: DENIES PREVIOUS SURGERY Medical History Medical History Date Comments HTN (hypertension) DX:HTN (hyper tension) Social History Tobacco Use Types Packs/Day Years Used Date Smoking Tobacco: Every Day Smokeless Tobacco: Never Alcohol Use Standard Drinks/Week Comments No 0 (1 standard drink = 0.6 oz pur e alcohol) Comments Unknown Sex and Gender Information Value Date Recorded Sex Assigned at Not on file Legal Sex Female 12:07 PM EST Gender Identity Not on file Sexual Orientation Not on file Obstetrics History Plan of Treatment Health Maintenance Due Date Last Done Comments DTaP,Tdap,and Td Vaccines (1 - Tdap) 2004 Hepatitis B Vaccines (1 of 3 - 19+ 3-dose series) 2004 Cervical Cancer Screening: P ap Smear 2006 COVID-19 Vaccine (2023-2 5 season) 2023 Influenza Vaccine (Season Ended) 2024 HIB Vaccines Aged Out No longer eligi ble based on patient's age to complete this topic HPV Vaccines Aged Out No longer eligi ble based on patient's age to complete this topic Hepatitis A Vaccines Aged Out No long er eligible based on patient's age to complete this topic IPV Vaccines Aged Out No longer eligi ble based on patient's age to complete this topic MMR Vaccines Aged Out No longer eligi ble based on patient's age to complete this topic Meningococcal ACWY Vaccine Aged Out N o longer eligible based on patient's age to complete this topic Meningococcal B Vaccine Aged Out No l onger eligible based on patient's age to complete this topic Pneumococcal Vaccine: Pediat rics (0 to 5 Years) and At-Risk Patients (6 to 64 Years) Aged Out No longer eligible b ased on patient's age to complete this topic RSV Immunization Patients Un romina 20 months Aged Out No longer eligible b ased on patient's age to complete this topic Varicella Vaccines Aged Out No longer eligible based on patient's age to complete this topic Care Teams Field Pipe Lines Supervisor Relationship Specialty Start Date End Date Casimiro Mejia MD [address] [place] [address] PCP - General Internal Medicine 05/05/17
--- NOTE | 2024-09-05 14:33 | ED_ITS ---
HPI - Extremity Injury (Lower) General Chief Complaint: Extremity Injury, Lower Stated Complaint: left leg pain swollen / fever 105 Time Seen by Provider: 09/05/24 13:52 History of Present Illness HPI Narrative: Patient is a 39-year-old female presents today with having left leg swelling pain ongoing about 3 days ago patient states she has a fever as high as 105. Took some Tylenol positive cocaine use about a week ago never shot of drug is currently on methadone. No history of cancer. Patient is from home. Related Data Home Medications ?Medication ?Instructions ?Recorded ?Confirmed gabapentin 300 mg capsule 300 mg PO QD-TID PRN Anxiety 11/04/22 11/04/22 Previous Rx's ?Medication ?Instructions ?Recorded doxycycline hyclate 100 mg capsule 100 mg PO BID cough 7 days #14 caps 09/05/24 Allergies Allergy/AdvReac Type Severity Reaction Status Date / Time acetaminophen (From TYLENOL) Allergy Unknown ITCHY Verified 09/05/24 12:59 codeine (CODEINE) Allergy Unknown RASH Verified 09/05/24 12:59 Review of Systems 2 Review of Systems: Positive redness to the left leg Yes all other systems are reviewed and are negative [facility] Past Medical History Attestation statement: The following information was validated with the patient. Social History Social History Alcohol intake: former Substance Use Type: Marijuana Advance Directives: No Advance Directives Information Provided: Yes Do you have a plan to hurt others: No Plan Physical Exam 2 Vital Signs: Vital Signs: Last Vital Signs Temp 98.5 F 09/05/24 15:09 Pulse 108 H 09/05/24 15:09 Resp 14 09/05/24 15:09 BP 122/86 09/05/24 15:09 Pulse Ox 96 09/05/24 15:09 O2 Del Method Room Air 09/05/24 12:56 BMI result Body Mass Index 31.8 Appearance: Alert. Oriented X3. No acute distress. Eyes: Pupils equal, round and reactive to light. ENT: Pharynx normal. Neck: Normal inspection. Neck supple. No lymph nodes noted. No crepitus CVS: Normal heart rate and rhythm. Pulses normal. Normal S1 and S2 Respiratory: No respiratory distress. Breath sounds normal. No Wheezing. No rales Abdomen: Soft and nontender. No rigidity. No distention. good BS x4 Skin: Please see below. Extremities: Examination of left leg showed redness swelling from just below the left knee down to right above the ankle it is circumferential red swollen warm to touch. Distal pulses intact. Sensation intact. No gross fluctuance noted. Neuro: Oriented X 3. No motor deficit. No sensory deficit. Moving all extermities. No slurred speech Medications Administered Discontinued Medications Generic Name Dose Route Start Last Admin Trade Name Freq PRN Reason Stop Dose Admin Ceftriaxone Sodium 1 gm 09/05/24 14:31 09/05/24 15:14 Ceftriaxone Sodium 1 Gm Vial IVPUSH 09/05/24 14:32 1 gm ONCE ONE Administration Medical Decision Making Medical Decision Making [facility] Narrative: Patient have extensive redness swelling fever up to 105 at home. Doppler ultrasound lower extremity was done. It was grossly negative for any acute evidence of DVT. Patient is white count is 7.1. Slight shift noted. Electrolytes unremarkable explained to patient the need to stay. Patient's lactate is 0.7 there is no evidence for severe sepsis a dose of antibiotic was given. All thoughts is that given patient's poor follow-up. Patient needs close monitoring. Patient refused to stay. Understood the risks including infection including including loss of limb. Patient left against medical advice. Will give patient doxycycline for empiric coverage of cellulitis coverage of MRSA community-acquired. Currently in stable condition. Signed out against medical advice Differential Diagnosis Differential Diagnoses: The differential diagnosis associated with the presentation includes Cellulitis Admission/Observation Consideration of admission/observation: Escalation of care including admission/observation considered Lab Data [facility] Lab Attestation statement: I reviewed the patient's lab results. 09/05/24 13:28 09/05/24 13:28 Labs: Lab Results 09/05/24 Range/Units 13:28 WBC 7.1 (4.8-10.8) X10*3/uL RBC 4.25 (4.20-5.50) X10*6/uL Hgb 12.3 (12.0-16.0) g/dl Hct 36.5 L (37.0-47.0) % MCV 85.9 (80.0-98.0) fL MCH 28.9 (27.0-33.0) pg MCHC 33.7 (31.0-35.0) g/dl RDW 17.0 H (11.0-16.0) % Plt Count 159 L D (160-400) X10*3/uL MPV 9.4 (9.4-12.3) fL Immature Gran % (Auto) Cancelled Neut % (Auto) Cancelled Lymph % (Auto) Cancelled [place] % (Auto) Cancelled Eos % (Auto) Cancelled Baso % (Auto) Cancelled Lymph # (Auto) Cancelled [place] # (Auto) Cancelled Eos # (Auto) Cancelled Baso # (Auto) Cancelled Abs Immat Gran (auto) Cancelled Absolute Neuts (auto) Cancelled Absolute Nucleated RBC 0.000 (0.0-0.012) X10*3/uL Nucleated RBC % (auto) 0.0 (0.0-0.2) /100WBC Neutrophils % (Manual) 81 H (45-73) % Band Neutrophils % 2 L (3-5) % Lymphocytes % (Manual) 9 L (20-40) % Atypical Lymphs % (Man) 1 (0-6) % Monocytes % (Manual) 5 (2-11) % Eosinophils % (Manual) 2 (0-4) % Abs Neuts (Manual) 5.9 (2.0-8.3) X10*3/uL Lymphocytes # (Manual) 0.6 L (1.2-4.9) X10*3/uL Atyp Lymphs # (Manual) 0.1 x10*3/uL Monocytes # (Manual) 0.4 (0.1-1.2) X10*3/uL Eosinophils # (Manual) 0.1 (0.0-0.4) X10*3/uL Platelet Estimate NORMAL (NORMAL) Plt Morphology Comment NORMAL RBC Morphology NORMAL ESR 72 H (0-20) MM/HR Sodium 139 (135-145) mmol/L Potassium 3.4 (3.3-5.1) mmol/L Chloride 102 (96-108) mmol/L Carbon Dioxide 30 H (22-29) mmol/L Anion Gap 10 L (12-20) BUN 10 (9-16) mg/dL Creatinine 0.94 (0.5-1.4) mg/dL Estim Creat Clear Calc 81.2 Estimated GFR > 60 Random Glucose 102 (60-115) mg/dL Lactic Acid 0.7 (0.5-2.0) mmol/L Calcium 8.8 (8.4-10.2) mg/dL Total Bilirubin 0.5 (0.0-1.0) mg/dL AST 42 H (5-31) U/L ALT 48 H (0-31) U/L Alkaline Phosphatase 95 (39-117) U/L C-Reactive Protein 20.46 H (< or = 0.50) mg/dL Total Protein 7.0 (6.5-8.0) g/dL Albumin 3.4 L (3.5-5.0) g/dL Lipase 7 L (8-78) U/L Beta HCG, Quant < 2 mIU/mL Independent Interpretation I performed an independent interpretation of an: Ultrasound (Negative for DVT) Radiology Impression Discussion of test interpretation with radiology: I have reviewed the radiologist's reading. Social Determinants Patient?s care significantly limited by Social Determinants of Health including: Alcoholism and drug addiction in family and Problems related to primary support group Discharge Plan Discharge Clinical Impression: Cellulitis Patient Disposition: Left Against Medical Advice Instructions: Cellulitis (ED), Warm Compress or Soak (ED) Prescriptions: New doxycycline hyclate 100 mg capsule 100 mg PO BID 7 Days Qty: 14 0RF No Action gabapentin 300 mg capsule 300 mg PO QD-TID PRN (Reason: Anxiety) Referrals: [facility] [Physician, Medical] - 09/06/24 Referral Note: If you change your mind please come back. Your left against medical advice. Stand Alone Forms: Against Medical Advice Print Language: Polish
[2024-09-05 15:09] VITALS: BP 122/86; PULSE 108; RESP 14; TEMP 36.9; O2SAT 96
[2024-09-05 16:46] VITALS: BP 148/95; PULSE 94; RESP 18; TEMP 37.2; O2SAT 95
== END 2024-09-05 16:47 | disposition left against medical advice (07) ==
PROVIDERS: Physician Assistant; Emergency Provider Emergency Medicine Emergency Medical Services
DX: L03.116 Cellulitis of left lower limb (principal); M79.662 Pain in left lower leg; R50.9 Fever, unspecified; Z79.899 Other long term (current) drug therapy
CPT/HCPCS: 36415; 80053; 83605; 83690; 84702; 85007; 85027; 85652; 86140; 87040; 93971; 96374; 99284; J0696

== ENCOUNTER → 2024-09-05 12:57 | Outpatient (BNV) | payer OTHER, SELFPAY | PROVIDERS: Emergency Provider Emergency Medicine Emergency Medical Services; Visit Provider Radiology Diagnostic Radiology | DX: R22.42 Localized swelling, mass and lump, left lower limb (principal); M79.662 Pain in left lower leg | CPT/HCPCS: 93971 ==

== ENCOUNTER 2024-09-09 14:33 | Inpatient (IN) | payer OTHER, SELFPAY ==
--- NOTE | ~2024-09-09 | US_ITS ---
CLINICAL HISTORY: pain and swelling VENOUS DUPLEX ULTRASOUND LEFT LOWER EXTREMITY Comparison: US/SR - US VENOUS DUPLEX LE LT - 09/05/24 14:51 EDT Findings: The visualized deep veins are fully compressible with normal Doppler color flow and spectral tracings. No popliteal cyst. Redemonstration of multiple left inguinal lymph nodes that measure up to 4.9 x 1.9 x 3.0 cm. There is subcutaneous edema in the calf. IMPRESSION: 1. Negative for left lower extremity deep vein thrombosis. 2. Persistent right inguinal adenopathy of unknown etiology. This document has been electronically signed by: Luz Marina Cornelius DO on 09/09/2024 16:19:50
--- NOTE | ~2024-09-09 | CT_ITS ---
CLINICAL HISTORY: severe erythema edema. Exam: CT left lower leg with IV contrast. Comparison: None. Findings: Circumferential skin thickening with subcutaneous reticular edema in the lower leg. No organized fluid collection. No foreign body. No suspicious lytic or blastic bone lesion. No acute fracture or dislocation. Impression: Extensive lower extremity edema. No abscess. No osteomyelitis. This document has been electronically signed by: Walter Jennings MD on 09/09/2024 22:45:51
[2024-09-09 14:41] VITALS: BP 144/89; PULSE 110; RESP 16; TEMP 36.6; O2SAT 99
--- NOTE | 2024-09-09 14:45 | ED_ITS ---
HPI - General Adult General Chief complaint: Extremity Injury, Lower Stated complaint: leg swelling Time Seen by Provider: 09/09/24 16:30 History of Present Illness ED Provider: Davi Erwin MD HPI narrative: 39-year-old female denies any significant medical or surgical history. Says she was diagnosed with cellulitis of the lower left leg about 4 days ago was started on doxycycline. She says she has been adherent with this but has worsening swelling redness. Patient denies history of DVT or PE. Denies any injuries to the leg or breaks in the skin. Her foot is swollen and now it is tracking up the medial thigh as well. Denies subjective fever Related Data Allergies Allergy/AdvReac Type Severity Reaction Status Date / Time acetaminophen (From TYLENOL) Allergy Unknown ITCHY Verified 09/09/24 14:41 codeine (CODEINE) Allergy Unknown RASH Verified 09/09/24 14:41 PMF Past Medical History Medical History (Updated 09/09/24 @ 19:15 by Davi Erwin MD) Nicotine dependence Cocaine use disorder Social History Social History Household Members: Spouse and Children Housing: Apartment Alcohol intake: never Patient Tobacco Use Status: Current everyday Tobacco user Tobacco use type: Cigarette Smoked in Last 30 Days: Yes Patient Interested in Nicotine Replacement: Yes Patient Given Instructions on How to Stop Smoking: No Substance Use Type: Marijuana Currently Displaying Signs/Symptoms of Drug Intoxication Withdrawal: No Have you been hit, kicked, punched, or otherwise hurt by someone within the past year? If so, by whom?: No Do you feel safe in your current relationship?: Yes Is there a partner from a previous relationship who is making you feel unsafe now?: No Are you made to feel afraid or neglected: No Advance Directives: No Advance Directives Information Provided: No Do you have a plan to hurt others: No Plan Recently lost weight without trying: No Nutrition Risks: No Nutritional Risk Patient : No : No Poor oral hygiene: No service: No Physical Exam ED Vital Signs: Vital Signs - 24 hr 09/09/24 17:50 Temperature 96.8 F Pulse Rate 98 Respiratory Rate 16 Blood Pressure 140/88 H Pulse Oximetry 98 Oxygen Delivery Method Room Air BMI result Body Mass Index 30.0 Const Other: EXAM: Gen: Alert, awake, well appearing, well hydrated. Head: Atraumatic Eyes: Anicteric, Normal conjunctiva. ENT: Moist mucosa, no pallor. ? Neck: Supple. Skin: ?Profound edema warmth and redness from the dorsum of the foot to the knee with some medial thigh erythema and a edema as well. Pitting. No crepitus. No gross deformity see photo below Respiratory: Breathing comfortably, No distress.Clear to auscultation bilaterally, symmetric chest expansion, No wheeze, rales, ronchi. Cardiovascular: Regular rate and rhythm. No murmurs or rub. Well perfused periphery, warm extremities. No edema. ? Abdominal: No focal tenderness. Soft, no objective distension. No palpable masses or obvious organomegaly. ?No guarding, no rebound tenderness or other peritoneal findings. : No flank tenderness. Neuro: Alert. Gross movement of all extremities intact. ? Psych: Calm. Cooperative. MSK: No grossly visible deformity. Vital signs: See flowsheet Course Course Course Narrative: This is a rapid medical exam performed by John Lawton NP: Additional HPI, ROS, PE not included below will be deferred to primary provider. Patient is a 39-year-old female presenting with worsening LLE pain and swelling, seen previously but left AMA, states has been taking doxy as prescribed. Plan: labs, U/S Medications Administered Generic Name Dose Route Start Last Admin Trade Name Freq PRN Reason Stop Dose Admin Enoxaparin Sodium 40 mg 09/09/24 19:00 09/09/24 20:05 Enoxaparin Sodium 40 Mg/0.4 Ml Syringe SUBCUT 40 mg Q24H JOHN Administration Hydromorphone HCl 0.5 mg 09/10/24 08:17 09/10/24 14:35 Hydromorphone Hcl 0.5 Mg/0.5 Ml Syringe IVPUSH 0.5 mg Q3H PRN Administration Pain, Severe (Pain Scale 7-10) Protocol Vancomycin HCl 1,000 mg/ 270 mls @ 270 mls/hr 09/10/24 08:00 09/10/24 09:55 Sodium Chloride IV Infused Q12H JOHN Infusion Clindamycin Phosphate 900 mg in 50 mls @ 50 mls/hr 09/10/24 10:00 09/10/24 11:30 Cleocin IV Infused Q8H JOHN Infusion Nicotine 21 mg 09/09/24 19:05 09/10/24 08:04 Nicotine 21 Mg Patch.Td24 TRANSDERMA 21 mg DAILY JOHN Administration Sodium Chloride 3 ml 09/10/24 00:00 09/10/24 08:07 0.9 % Sodium Chloride Flush 3 Ml Syringe IVFLUSH 3 ml QSHIFT JOHN Administration Discontinued Medications Generic Name Dose Route Start Last Admin Trade Name [place] PRN Reason Stop Dose Admin Ceftriaxone Sodium 1 gm 09/09/24 17:48 09/09/24 20:02 Ceftriaxone Sodium 1 Gm Vial IVPUSH 09/09/24 17:49 1 gm ONCE ONE Administration Hydromorphone HCl 0.5 mg 09/09/24 20:19 09/09/24 20:53 Hydromorphone Hcl 0.5 Mg/0.5 Ml Syringe IVPUSH 09/09/24 20:20 0.5 mg ONCE ONE Administration Protocol Hydromorphone HCl 0.5 mg 09/09/24 23:02 09/09/24 23:22 Hydromorphone Hcl 0.5 Mg/0.5 Ml Syringe IVPUSH 09/09/24 23:03 0.5 mg ONCE ONE Administration Protocol Hydromorphone HCl 0.5 mg 09/10/24 04:24 09/10/24 04:49 Hydromorphone Hcl 0.5 Mg/0.5 Ml Syringe IVPUSH 09/10/24 04:25 0.5 mg ONCE ONE Administration Protocol Sodium Chloride 1,000 mls @ 999 mls/hr 09/09/24 18:00 09/09/24 23:08 Ns IV 09/09/24 19:00 Infused .Q1H1M JOHN Infusion Vancomycin HCl 2,000 mg in 500 mls @ 250 mls/hr 09/09/24 17:48 09/09/24 22:08 Vancomycin/Ns IV 09/09/24 19:47 Infused ONCE ONE Infusion Iohexol 85 ml 09/09/24 21:48 09/09/24 21:50 Iohexol 350 Mg/Ml 100 Ml Infus..Btl IV 09/09/24 21:49 85 ml ONCE ONE Administration Lorazepam 0.5 mg 09/09/24 18:14 09/09/24 20:07 Lorazepam 0.5 Mg Tablet PO 09/09/24 18:15 0.5 mg ONCE ONE Administration Medical Decision Making Medical Decision Making MDM Narrative: Medical Decision Making: [age] female denies significant medical history worsening cellulitis with significant swelling redness of the dorsal foot lower leg and now medial thigh compartment. DVT excluded with ultrasound. There is inguinal lymphadenopathy. The compartments are soft though she is quite swollen in the calf this needs to be watched I would keep the leg elevated and monitor closely. Compartment syndrome was considered but given the examination and any and lack of any soft signs of neurovascular compromise she just needs this to be monitored closely I do not think there is early compartment syndrome. CT to evaluate for gas or fasciitis though there was no rapid progression or hemodynamic instability take suspect necrotizing infection. Broad-spectrum antibiotics admission to the hospital Preliminary Favored Differential Diagnosis: Cellulitis, DVT, fasciitis, myositis, lymphedema among additional considered etiologies Testing Interpreted Independently: None Radiology or Lab testing Results Reviewed: Radiology ultrasound rules out DVT. Mild leukocytosis. CRP elevation mild elevated INR. Albumin 3.1. No other actionable findings. ctFindings: Circumferential skin thickening with subcutaneous reticular edema in the lower leg. No organized fluid collection. No foreign body. No suspicious lytic or blastic bone lesion. No acute fracture or dislocation. Impression: Extensive lower extremity edema. No abscess. No osteomyelitis. Consults: Not Applicable Independent Historians/External Chart Reviews: Not Applicable Social Determinants of Health Impacting MDM/Planning: Personally reviewed ED documentation from 09/05/2024 Lab Data 09/10/24 05:28 09/10/24 05:28 Labs: Lab Results 09/09/24 Range/Units 15:36 WBC 11.0 H (4.8-10.8) X10*3/uL RBC 3.80 L (4.20-5.50) X10*6/uL Hgb 10.8 L (12.0-16.0) g/dl Hct 32.5 L (37.0-47.0) % MCV 85.5 (80.0-98.0) fL MCH 28.4 (27.0-33.0) pg MCHC 33.2 (31.0-35.0) g/dl RDW 17.2 H (11.0-16.0) % Plt Count 291 D (160-400) X10*3/uL MPV 9.3 L (9.4-12.3) fL Immature Gran % (Auto) 1.8 H (0.0-0.4) % Neut % (Auto) 69.0 (45-73) % Lymph % (Auto) 20.7 (20-40) % [place] % (Auto) 7.8 (2-11) % Eos % (Auto) 0.4 (0-4) % Baso % (Auto) 0.3 (0-2) % Lymph # (Auto) 2.3 (1.2-4.9) X10*3/uL [place] # (Auto) 0.9 (0.1-1.2) X10*3/uL Eos # (Auto) 0.0 (0.0-0.4) X10*3/uL Baso # (Auto) 0.0 (0.0-0.2) X10*3/uL Abs Immat Gran (auto) 0.20 H (0.00-0.03) X10*3/uL Absolute Neuts (auto) 7.6 (2.0-8.3) x10*3/uL Absolute Nucleated RBC 0.000 (0.0-0.012) X10*3/uL Nucleated RBC % (auto) 0.0 (0.0-0.2) /100WBC ESR 92 H (0-20) MM/HR PT 14.7 H D (10.9-12.4) SEC INR 1.3 H (0.9-1.1) Sodium 141 (135-145) mmol/L Potassium 4.0 (3.3-5.1) mmol/L Chloride 103 (96-108) mmol/L Carbon Dioxide 29 (22-29) mmol/L Anion Gap 13 (12-20) BUN 10 (9-16) mg/dL Creatinine 0.81 (0.5-1.4) mg/dL Estim Creat Clear Calc 95.0 Estimated GFR > 60 Random Glucose 158 H (60-115) mg/dL Calcium 9.2 (8.4-10.2) mg/dL Total Bilirubin 0.3 (0.0-1.0) mg/dL AST 25 (5-31) U/L ALT 22 (0-31) U/L Alkaline Phosphatase 105 (39-117) U/L C-Reactive Protein 29.94 H (< or = 0.50) mg/dL Total Protein 6.9 (6.5-8.0) g/dL Albumin 3.1 L (3.5-5.0) g/dL Beta HCG, Quant < 2 mIU/mL Discharge Plan Discharge Clinical Impression: Cellulitis of leg Patient Disposition: Admitted As Inpatient Interventions: Admission Worksheet (ED) Last Done: 09/09/24 20:44 Discharge Date/Time: 09/09/24 22:43
[2024-09-09 15:41] LABS: MANUAL DIFF FLAG NO
[2024-09-09 15:46] LABS: Hematocrit 32.5 % (37.0-47.0); Hemoglobin 10.8 g/dl (12.0-16.0); Imm Gran Abs Auto 0.20 X10*3/uL (0.00-0.03); Imm Gran Pct Auto 1.8 % (0.0-0.4); Lymphocytes Absolute Auto 2.3 X10*3/uL (1.2-4.9); Mean Corpuscular HGB Conc 33.2 g/dl (31.0-35.0); Mean Corpuscular Hemoglobin 28.4 pg (27.0-33.0); Mean Corpuscular Volume 85.5 fL (80.0-98.0); NRBC Abs Auto 0.000 X10*3/uL (0.0-0.012); NRBC Pct Auto 0.0 /100WBC (0.0-0.2); Platelet Count 291 X10*3/uL (160-400); Red Blood Count 3.80 X10*6/uL (4.20-5.50); White Blood Count 11.0 X10*3/uL (4.8-10.8)
[2024-09-09 15:54] LABS: INTERNATIONAL NORM RATIO 1.3 (0.9-1.1); Prothrombin Time 14.7 SEC (10.9-12.4)
[2024-09-09 15:57] LABS: Alanine Aminotransferase 22 U/L (0-31); Albumin Level 3.1 g/dL (3.5-5.0); Alkaline Phosphatase 105 U/L (39-117); Anion Gap 13 (12-20); Aspartate Amino Transferase 25 U/L (5-31); Blood Urea Nitrogen 10 mg/dL (9-16); Calcium 9.2 mg/dL (8.4-10.2); Carbon Dioxide 29 mmol/L (22-29); Chloride 103 mmol/L (96-108); Creatinine Clr Calc Pharmacy 95.0; Estimated Glomerular Filt Rate > 60; Potassium 4.0 mmol/L (3.3-5.1); Sodium 141 mmol/L (135-145); Total Protein 6.9 g/dL (6.5-8.0)
[2024-09-09 17:50] VITALS: BP 140/88; PULSE 98; RESP 16; TEMP 36; O2SAT 98
--- NOTE | 2024-09-09 18:59 | PM.IMHP ---
History of Present Illness Date of Service: 09/09/24 Attending physician on admission: Severino Acevedo Chief Complaint: Left leg infection Pt is a 39-year-old female with a PMH significant for?cocaine use disorder who presents to the ED with?worsening left leg cellulitis. Symptom onset began 2 weeks ago when pt noticed swelling, redness, and pain in lower left leg. Denies any known trauma to the area. Pt admits to snorting cocaine, but denies any IVDU. No hx of diabetes. Pt initially presented to the ED on 09/05 and was considered for hospital admission due to extent of cellulitis, though pt refused to stay and left AMA. Was prescribed doxycycline which she reports she took as prescribed. Despite being on the antibiotics left leg swelling and redness increased, extending to lower foot and upper thigh. Reports measured fever of 105 at home, though none measured in the ED. has had difficulty ambulating due to swelling and pain. Denies any other systemic symptoms. No nausea, vomiting, abdominal pain. Denies chest pain/pressure, palpitations. No SOB or difficulty breathing. In the ED pt was tachycardic up to 110 and mildly hypertensive up to 144/89. Satting at 99% on RA. Labs were significant for leukocytosis of 11.0, H&H 10.8/32.5, ESR 92, and CRP 29.94. No significant electrolyte abnormalities. Renal function WNL. Hepatic function baseline. Left lower extremity negative for DVT. Did show persistent left inguinal adenopathy bundle known etiology. Pt was treated in the ED with vancomycin and ceftriaxone. Pt is admitted to the hospital for treatment and further evaluation of extensive left leg cellulitis that has failed outpatient therapy. Review of Systems Review of Systems: Negative except for that which is stated in the HPI. [facility] Medical History (Updated 09/09/24 @ 19:15 by Davi Erwin MD) Nicotine dependence Cocaine use disorder Social History Alcohol intake: never Patient Tobacco Use Status: Current everyday Tobacco user Smoked in Last 30 Days: Yes Substance Use Type: Marijuana Advance Directives: No Advance Directives Information Provided: No Do you have a plan to hurt others: No Plan Nutrition Risks: No Nutritional Risk Patient : No Meds Allergies Allergy/AdvReac Type Severity Reaction Status Date / Time acetaminophen (From TYLENOL) Allergy Unknown ITCHY Verified 09/09/24 14:41 codeine (CODEINE) Allergy Unknown RASH Verified 09/09/24 14:41 Active Medications: Current Medications Sodium Chloride (Ns) 1,000 mls @ 999 mls/hr IV .Q1H1M JOHN Stop: 09/09/24 19:00 Vancomycin HCl (Vancomycin/Ns) 2,000 mg in 500 mls @ 250 mls/hr IV ONCE ONE Stop: 09/09/24 19:47 Home Medications ?Medication ?Instructions ?Recorded ?Confirmed ?Last Taken ?Type gabapentin 300 mg capsule 300 mg PO TID PRN Anxiety 11/04/22 11/04/22 Unknown History Physical Exam Vital Signs and Narrative: Vital Signs: Last Vital Signs Temp 96.8 F 09/09/24 17:50 Pulse 98 09/09/24 17:50 Resp 16 09/09/24 17:50 BP 140/88 H 09/09/24 17:50 Pulse Ox 98 09/09/24 17:50 O2 Del Method Room Air 09/09/24 17:50 BMI result Body Mass Index 30.0 General: AOx3, no acute distress Resp: CTA bilaterally CVS: S1, S2, RRR GI: +BS, NT, no distention Skin: Warm, dry Neuro: Cranial nerves II-XII grossly intact bilaterally. Motor grossly intact bilaterally Extremities: Extensive left lower extremity redness, warmth, and edema from foot to inner thigh. Skin very taut, especially of calf, roque, and foot. As pictured below Psych: Anxious, at times agitated Results Labs 09/09/24 15:36 09/09/24 15:36 Labs: Laboratory Results - last 24 hr 09/09/24 15:36 MCV 85.5 MCH 28.4 MCHC 33.2 RDW 17.2 H Plt Count 291 D MPV 9.3 L Immature Gran % (Auto) 1.8 H Neut % (Auto) 69.0 Lymph % (Auto) 20.7 [place] % (Auto) 7.8 Eos % (Auto) 0.4 Baso % (Auto) 0.3 Lymph # (Auto) 2.3 [place] # (Auto) 0.9 Eos # (Auto) 0.0 Baso # (Auto) 0.0 Abs Immat Gran (auto) 0.20 H Absolute Neuts (auto) 7.6 Absolute Nucleated RBC 0.000 Nucleated RBC % (auto) 0.0 ESR 92 H PT 14.7 H D INR 1.3 H Anion Gap 13 Estim Creat Clear Calc 95.0 Estimated GFR > 60 Random Glucose 158 H Calcium 9.2 Total Bilirubin 0.3 AST 25 ALT 22 Alkaline Phosphatase 105 C-Reactive Protein 29.94 H Total Protein 6.9 Albumin 3.1 L Assessment and Plan (1) Cellulitis of leg: Status: Acute Plan Pt is a 39-year-old female with a PMH significant for?cocaine use disorder who presents to the ED with?worsening left leg cellulitis. Symptom onset began 2 weeks ago when pt noticed swelling, redness, and pain in lower left leg. Pt is admitted to the hospital for treatment and further evaluation of extensive left leg cellulitis that has failed outpatient therapy. Left leg cellulitis Worsening x2 weeks despite being on doxycycline 100 mg p.o. b.i.d. since 09/05 Presented 4 days ago on 09/05 in left AMA without being admitted Denies hx of IVDU; no known trauma or assault to the area No sepsis: Tachycardia but no other SIRS criteria Will treat with vancomycin, started 09/09/2024 CT of leg pending Follow blood cultures Anxiety/agitation Pt with hx of agitation and anxiety, leaving AMA on multiple occasions in the past Currently anxious concerning IV placement, as well as wanting to go outside to smoke a cigarette We will give Ativan 0.5 mg p.o. x1 Nicotine dependence Nicotine patch daily, lozenge p.r.n. Cocaine use disorder Addiction medicine consult Full Code Attending:?Dr. Acevedo DVT Prophylaxis: Lovenox Pt will require a hospitalization of at least two nights for treatment of?extensive left leg cellulitis that failed outpatient therapy and will require IV antibiotics. Quality Stroke Does the patient have a stroke diagnosis?: No VTE Prior VTE?: No VTE Risk Level:: Medical - moderate - high VTE Device Contraindication: Treatment Not Indicated VTE Drug Contraindication: N/A - Med Ordered
[2024-09-09] MEDS: Nicotine 21 MG PATCH.TD24 TRANSDERMA (20:01)
[2024-09-09] MEDS: vancomycin/NS 2,000 MG/500 ML PLAST..BAG 250 MG IV (20:08)
--- NOTE | 2024-09-09 20:16 | PHA.PROG ---
Admission Date/Time: September 09, 2024 18:17 Indication: SKIN Weight in k.379 kg Serum Creatinine - Last 168 Hours 09/09/24 15:36 Creatinine 0.81 Estimated CrCl and GFR - Last 168 Hours 09/09/24 15:36 Estim Creat Clear Calc 95.0 Estimated GFR > 60 Vancomycin Loading Dose: 2000 Current Vancomycin Dosing Regimen: 1000 Q 12H Vancomycin Monitoring using AUC goal of 400 - 600 range with trough as surrogate marker: 452 Date and Time for next Vancomycin Level to be drawn: 09/11 @ 0600 Pharmacist Comments on Vancomycin Plan: Vancomycin dosing will take advantage of [facility] as a clinical decision support tool that uses Bayesian modeling to calculate individual patient's pharmacokinetic parameters and forecast the patient's drug concentration time course with the target goal AUC 24 range of 400 - 600 mg/L/hr.
[2024-09-09 20:29] VITALS: BP 148/87; PULSE 104; RESP 18; TEMP 37.4; O2SAT 98
[2024-09-09] MEDS: iohexoL 350 MG/ML 100 ML INFUS..BTL 85 ML IV (21:50)
[2024-09-09 22:36] VITALS: BMI 30.3
[2024-09-09 23:04] VITALS: BP 143/64; PULSE 109; RESP 17; TEMP 36.3; O2SAT 97
[2024-09-10 03:56] VITALS: BP 142/76; PULSE 104; RESP 17; TEMP 36.7; O2SAT 98
[2024-09-10 06:55] LABS: Hematocrit 30.8 % (37.0-47.0); Hemoglobin 10.1 g/dl (12.0-16.0); Mean Corpuscular HGB Conc 32.8 g/dl (31.0-35.0); Mean Corpuscular Hemoglobin 28.2 pg (27.0-33.0); Mean Corpuscular Volume 86.0 fL (80.0-98.0); NRBC Abs Auto 0.000 X10*3/uL (0.0-0.012); NRBC Pct Auto 0.0 /100WBC (0.0-0.2); Platelet Count 320 X10*3/uL (160-400); Red Blood Count 3.58 X10*6/uL (4.20-5.50); White Blood Count 9.2 X10*3/uL (4.8-10.8)
[2024-09-10 06:57] VITALS: BP 144/56; PULSE 106; RESP 16; TEMP 36.6; O2SAT 97
[2024-09-10 07:05] LABS: Anion Gap 11 (12-20); Blood Urea Nitrogen 7 mg/dL (9-16); Calcium 8.2 mg/dL (8.4-10.2); Carbon Dioxide 29 mmol/L (22-29); Chloride 105 mmol/L (96-108); Creatinine Clr Calc Pharmacy 100.3; Estimated Glomerular Filt Rate > 60; Potassium 3.6 mmol/L (3.3-5.1); Sodium 141 mmol/L (135-145)
[2024-09-10] MEDS: Nicotine 21 MG PATCH.TD24 TRANSDERMA (08:04)
[2024-09-10] MEDS: 0.9 % Sodium Chloride Flush 3 ML SYRINGE IVFLUSH ×3 (08:07→20:37)
--- NOTE | 2024-09-10 08:58 | PHA.MEDREC ---
Addendum entered by Samir Cortez RPh 09/10/24 09:53: MED REC REVIEWED BY [facility] Original Note: Pharmacy Consult ? Medication Reconciliation Pharmacy has completed the medication reconciliation. Spoke with pt and she confirmed she is not taking any medications at this time. When I asked about the Gabapentin (LF: 08/15 F30) and Doxycycline (LF: 09/05 F14), pt confirmed she is not taking those and does not want anything to do with them .
--- NOTE | 2024-09-10 09:07 | HO.PM.IMPN ---
Subjective Subjective Date of Service: 09/10/24 Interval History: LLE pain and swelling Physical Exam Vital Signs: Vital Signs: Last Vital Signs Temp 98 F 09/10/24 06:57 Pulse 106 H 09/10/24 06:57 Resp 16 09/10/24 06:57 BP 144/56 H 09/10/24 06:57 Pulse Ox 97 09/10/24 06:57 O2 Del Method Room Air 09/10/24 06:57 BMI result Body Mass Index 30.3 General: AO X 3, no acute distress Resp: CTA bilateral, no accessory muscles used CVS: S1,S2,RRR GI: soft, non tender, non distended Neuro: motor grossly intact, alert Psych: appropriate affect, appropriate insight lle edema, erythema, tender Objective Data Active Medications Calcium Carbonate (Calcium Carbonate 750 Mg Tab.Chew) 750 mg PO Q4H PRN PRN Reason: Heartburn Enoxaparin Sodium (Enoxaparin Sodium 40 Mg/0.4 Ml Syringe) 40 mg SUBCUT Q24H ON LICENSE OF [facility] Last Admin: 09/09/24 20:05 Dose: 40 mg Documented By: MOOK Hydromorphone HCl (Hydromorphone Hcl 0.5 Mg/0.5 Ml Syringe) 0.5 mg IVPUSH Q3H PRN; Protocol PRN Reason: Pain, Severe (Pain Scale 7-10) Last Admin: 09/10/24 08:29 Dose: 0.5 mg Documented By: SHANNON Vancomycin HCl 1,000 mg/ (Sodium Chloride) 270 mls @ 270 mls/hr IV Q12H ON LICENSE OF [facility] Last Admin: 09/10/24 08:01 Dose: 270 mls/hr Documented By: SHANNON Magnesium Hydroxide (Milk Of Magnesia 30 Ml Oral.Susp) 30 ml PO DAILY PRN PRN Reason: Constipation Melatonin (Melatonin 3 Mg Tablet) 6 mg PO BEDTIME PRN PRN Reason: Insomnia Nicotine (Nicotine 21 Mg Patch.Td24) 21 mg TRANSDERMA DAILY ON LICENSE OF [facility] Last Admin: 09/10/24 08:04 Dose: 21 mg Documented By: SHANNON Nicotine Polacrilex (Nicotine Polacrilex Lozenge 2 Mg Lozenge) 2 mg BUCCAL Q1H PRN PRN Reason: Nicotine Cravings Pharmacy Consult (Consult Rx Vancomycin Dosing) 1 each MISCELLANE DAILY PRN PRN Reason: Consult order Sodium Chloride (0.9 % Sodium Chloride Flush 3 Ml Syringe) 3 ml IVFLUSH QSHIFT ON LICENSE OF [facility] Last Admin: 09/10/24 08:07 Dose: 3 ml Documented By: SHANNON Labs 09/10/24 05:28 09/10/24 05:28 Labs: Laboratory Results - last 24 hr 09/09/24 09/10/24 15:36 05:28 MCV 85.5 86.0 MCH 28.4 28.2 MCHC 33.2 32.8 RDW 17.2 H 17.3 H Plt Count 291 D 320 MPV 9.3 L 9.8 Immature Gran % (Auto) 1.8 H Neut % (Auto) 69.0 Lymph % (Auto) 20.7 [place] % (Auto) 7.8 Eos % (Auto) 0.4 Baso % (Auto) 0.3 Lymph # (Auto) 2.3 [place] # (Auto) 0.9 Eos # (Auto) 0.0 Baso # (Auto) 0.0 Abs Immat Gran (auto) 0.20 H Absolute Neuts (auto) 7.6 Absolute Nucleated RBC 0.000 0.000 Nucleated RBC % (auto) 0.0 0.0 ESR 92 H PT 14.7 H D INR 1.3 H Anion Gap 13 11 L Estim Creat Clear Calc 95.0 100.3 Estimated GFR > 60 > 60 Random Glucose 158 H 99 Calcium 9.2 8.2 L D Total Bilirubin 0.3 AST 25 ALT 22 Alkaline Phosphatase 105 C-Reactive Protein 29.94 H Total Protein 6.9 Albumin 3.1 L Beta HCG, Quant < 2 Assessment and Plan (1) Cellulitis of leg: Status: Acute Plan 39F PMH cocaine use disorder presented with left leg swelling, erythema, and pain LLE cellulitis 90% of limb failed doxy conitnue vanc, will add clinda follow up cultures nicotine dependnce patch cocaine dependence addiciton eval dvt prohpylaxis - lovenox full code reason for continued hospitalization:cultures Quality Stroke Does the patient have a stroke diagnosis?: No VTE Prior VTE?: No VTE Risk Level:: Medical - moderate - high VTE Device Contraindication: Treatment Not Indicated VTE Drug Contraindication: N/A - Med Ordered
--- NOTE | 2024-09-10 12:07 | MHC.CM.PN ---
Patient lives in a home w/ S.Kunal Watson, who also serves as APPLICATION PACKAGING CONSULTANT 59 hrs/wk and assists w/ all ADL's. Uses walker PRN for pain. PCP @ [facility] [address] [place] [address], she cannot recall the name of her provider. Reports she has an HCP naming Ping Drummond as HCA. Copy requested. DP: Home, resume APPLICATION PACKAGING CONSULTANT services. Per MD rounds, will not need IV abx on dc. Walter will transport. CM will continue to follow.
[2024-09-10 12:21] LABS: Cannabinoid Screen Urine Not Detected (Not Detect)
[2024-09-10 15:48] VITALS: BP 140/75; PULSE 106; RESP 16; TEMP 36.4; O2SAT 96
[2024-09-10 19:21] VITALS: BP 133/70; PULSE 97; RESP 16; TEMP 36.6; O2SAT 95
[2024-09-11 03:31] VITALS: BP 147/76; PULSE 99; RESP 20; TEMP 36.8; O2SAT 97
[2024-09-11 06:21] LABS: Anion Gap 10 (12-20); Blood Urea Nitrogen 5 mg/dL (9-16); Calcium 8.5 mg/dL (8.4-10.2); Carbon Dioxide 30 mmol/L (22-29); Chloride 104 mmol/L (96-108); Creatinine Clr Calc Pharmacy 89.8; Estimated Glomerular Filt Rate > 60; Magnesium 1.9 mg/dL (1.6-2.6); Potassium 3.9 mmol/L (3.3-5.1); Sodium 140 mmol/L (135-145)
[2024-09-11 06:28] LABS: Hematocrit 29.5 % (37.0-47.0); Hemoglobin 9.8 g/dl (12.0-16.0); Mean Corpuscular HGB Conc 33.2 g/dl (31.0-35.0); Mean Corpuscular Hemoglobin 28.5 pg (27.0-33.0); Mean Corpuscular Volume 85.8 fL (80.0-98.0); NRBC Abs Auto 0.000 X10*3/uL (0.0-0.012); NRBC Pct Auto 0.0 /100WBC (0.0-0.2); Platelet Count 331 X10*3/uL (160-400); Red Blood Count 3.44 X10*6/uL (4.20-5.50); White Blood Count 9.4 X10*3/uL (4.8-10.8)
--- NOTE | 2024-09-11 06:42 | HE.PHANOTE ---
Re: Vanco Renal levels are fluctuating but in good condition. Trough returned at 11.3, pt is therapeutic, but based on predictions. AUC will be below goal (393) going forward. Dose increased to 1250mg q12h with predicted AUC 490, predicted trough 13.9. Next trough 09/13 @ 0600.
[2024-09-11 07:43] VITALS: BP 157/78; PULSE 100; RESP 20; TEMP 36.6; O2SAT 96
[2024-09-11] MEDS: 0.9 % Sodium Chloride Flush 3 ML SYRINGE IVFLUSH ×2 (08:57→17:19)
[2024-09-11] MEDS: Nicotine 21 MG PATCH.TD24 TRANSDERMA (08:58)
[2024-09-11 09:57] VITALS: RESP 18
--- NOTE | 2024-09-11 10:16 | HO.PM.IMPN ---
Subjective Subjective Date of Service: 09/11/24 Interval History: Marked improvement able to bear weight but still swollen and painful Physical Exam Vital Signs: Vital Signs: Last Vital Signs Temp 98 F 09/11/24 07:43 Pulse 100 09/11/24 07:43 Resp 18 09/11/24 09:57 BP 157/78 H 09/11/24 07:43 Pulse Ox 96 09/11/24 07:43 O2 Del Method Room Air 09/11/24 07:43 BMI result Body Mass Index 30.3 General: AO X 3, no acute distress Resp: CTA bilateral, no accessory muscles used CVS: S1,S2,RRR GI: soft, non tender, non distended Neuro: motor grossly intact, alert Psych: appropriate affect, appropriate insight lle edema,no erythema, tender Objective Data Active Medications Calcium Carbonate (Calcium Carbonate 750 Mg Tab.Chew) 750 mg PO Q4H PRN PRN Reason: Heartburn Enoxaparin Sodium (Enoxaparin Sodium 40 Mg/0.4 Ml Syringe) 40 mg SUBCUT Q24H [facility] Last Admin: 09/10/24 20:32 Dose: 40 mg Documented By: ALEJANDRA Hydromorphone HCl (Hydromorphone Hcl 0.5 Mg/0.5 Ml Syringe) 0.5 mg IVPUSH Q3H PRN; Protocol PRN Reason: Pain, Severe (Pain Scale 7-10) Last Admin: 09/11/24 09:57 Dose: 0.5 mg Documented By: KELSEY Clindamycin Phosphate (Cleocin) 900 mg in 50 mls @ 50 mls/hr IV Q8H [facility] Last Infusion: 09/11/24 03:01 Dose: Infused Documented By: ALEJANDRA Vancomycin HCl 1,250 mg/ (Sodium Chloride) 250 mls @ 166.667 mls/hr IV Q12H [facility] Last Admin: 09/11/24 08:57 Dose: 166.67 mls/hr Documented By: KELSEY Magnesium Hydroxide (Milk Of Magnesia 30 Ml Oral.Susp) 30 ml PO DAILY PRN PRN Reason: Constipation Melatonin (Melatonin 3 Mg Tablet) 6 mg PO BEDTIME PRN PRN Reason: Insomnia Nicotine (Nicotine 21 Mg Patch.Td24) 21 mg TRANSDERMA DAILY [facility] Last Admin: 09/11/24 08:58 Dose: 21 mg Documented By: KELSEY Nicotine Polacrilex (Nicotine Polacrilex Lozenge 2 Mg Lozenge) 2 mg BUCCAL Q1H PRN PRN Reason: Nicotine Cravings Pharmacy Consult (Consult Rx Vancomycin Dosing) 1 each MISCELLANE DAILY PRN PRN Reason: Consult order Sodium Chloride (0.9 % Sodium Chloride Flush 3 Ml Syringe) 3 ml IVFLUSH QSHIFT [facility] Last Admin: 09/11/24 08:57 Dose: 3 ml Documented By: KELSEY Labs 09/11/24 05:53 09/11/24 05:53 Labs: Laboratory Results - last 24 hr 09/10/24 09/11/24 11:45 05:53 MCV 85.8 MCH 28.5 MCHC 33.2 RDW 17.2 H Plt Count 331 MPV 9.2 L Absolute Nucleated RBC 0.000 Nucleated RBC % (auto) 0.0 Anion Gap 10 L Estim Creat Clear Calc 89.8 Estimated GFR > 60 Random Glucose 92 Calcium 8.5 Magnesium 1.9 Random Vancomycin 11.3 L Urine Opiates Screen POSITIVE H Ur Buprenorphine Scrn Not Detected Ur Oxycodone Screen Not Detected Urine Methadone Screen Not Detected Urine Fentanyl Screen POSITIVE H Ur Barbiturates Screen Not Detected Ur Phencyclidine Scrn Not Detected Ur Amphetamines Screen Not Detected U Benzodiazepines Scrn Not Detected Urine Cocaine Screen POSITIVE H U Marijuana (THC) Screen Not Detected Microbiology Microbiology Results: Microbiology 09/09/24 19:10 Blood Culture - Preliminary Blood - Venous No growth after 24 hours. 09/09/24 19:09 Blood Culture - Preliminary Blood - Venous No growth after 24 hours. Assessment and Plan (1) Cellulitis of leg: Status: Acute Plan 39F PMH cocaine use disorder presented with left leg swelling, erythema, and pain LLE cellulitis 90% of limb failed doxy conitnue vanc, clinda Cultures negative, improving nicotine dependnce patch cocaine dependence addiciton eval dvt prohpylaxis - lovenox full code reason for continued hospitalization: Ongoing IV antibiotics for better bioavailability due to failed p.o. Quality Stroke Does the patient have a stroke diagnosis?: No VTE Prior VTE?: No VTE Risk Level:: Medical - moderate - high VTE Device Contraindication: Treatment Not Indicated VTE Drug Contraindication: N/A - Med Ordered
--- NOTE | 2024-09-11 13:29 | PM.EVENT ---
Event Note Date of Service: 09/11/24 Event Note: Addiction consult placed for patient related to cocaine use UDS +fentanyl, cocaine Patient seen by Recovery Support RN Concern for withdrawal sx discussed patient, declined MOUD Declined to meet with t/w for further discussion around treatment for substance use Please see RN note from 09/11/24 for additional details Time Spent With Patient Time: Total time managing care of this patient today ____ minutes.
[2024-09-11 15:23] VITALS: BP 141/74; PULSE 98; RESP 18; TEMP 36.9; O2SAT 98
--- NOTE | 2024-09-11 16:23 | HO.WOUND ---
Wound Consult: Initial 39yr old? female admitted to [facility] on 09/09/24 - See progress notes and H&P for detailed history.? Wound consult placed for Left Lower Leg.? Patient agreeable to assessment and photo documentation.? Patient admitted for cellulitis - imaging ruled out osteo and abscess. The skin remains intact at this time - no open wounds noted - no topical care needed. Defer treatment to providers. Recommend left leg elevation on pillows and twice daily moisturizer application.
[2024-09-11 18:49] VITALS: RESP 18
[2024-09-11 19:22] VITALS: BP 140/76; PULSE 100; RESP 18; TEMP 36.8; O2SAT 99
[2024-09-12] MEDS: 0.9 % Sodium Chloride Flush 3 ML SYRINGE IVFLUSH ×2 (00:35→07:34)
[2024-09-12 04:00] VITALS: BP 144/92; PULSE 100; RESP 16; TEMP 36.7; O2SAT 99
[2024-09-12 07:06] VITALS: BP 170/80; PULSE 92; RESP 18; TEMP 36.6; O2SAT 99
--- NOTE | 2024-09-12 07:53 | PM.DS ---
DS: Providers Provider Date of Service: 09/12/24 Date of admission: 09/09/24 18:17 Date of discharge: 09/12/24 Primary care physician: Unknown Physician Consults: 09/09/24 19:13 Addiction Medicine Provider Routine Consulting Provider: Adilene Bojorquez Reason for consultation: Cocaine use disorder 09/11/24 13:18 Inpt - Recovery Team Routine Comment: Reason for consultation: SHAHEEN eval DS: Diagnosis Discharge Diagnosis (1) Cellulitis of leg: Status: Acute DS: Summary Hospital Course Hospital Course: from initial hpi: 39-year-old female with a PMH significant for?cocaine use disorder who presents to the ED with?worsening left leg cellulitis. Symptom onset began 2 weeks ago when pt noticed swelling, redness, and pain in lower left leg. Denies any known trauma to the area. Pt admits to snorting cocaine, but denies any IVDU. No hx of diabetes. Pt initially presented to the ED on 09/05 and was considered for hospital admission due to extent of cellulitis, though pt refused to stay and left AMA. Was prescribed doxycycline which she reports she took as prescribed. Despite being on the antibiotics left leg swelling and redness increased, extending to lower foot and upper thigh. Reports measured fever of 105 at home, though none measured in the ED. has had difficulty ambulating due to swelling and pain. Denies any other systemic symptoms. No nausea, vomiting, abdominal pain. Denies chest pain/pressure, palpitations. No SOB or difficulty breathing. In the ED pt was tachycardic up to 110 and mildly hypertensive up to 144/89. Satting at 99% on RA. Labs were significant for leukocytosis of 11.0, H&H 10.8/32.5, ESR 92, and CRP 29.94. No significant electrolyte abnormalities. Renal function WNL. Hepatic function baseline. Left lower extremity negative for DVT. Did show persistent left inguinal adenopathy bundle known etiology. Pt was treated in the ED with vancomycin and ceftriaxone. Pt is admitted to the hospital for treatment and further evaluation of extensive left leg cellulitis that has failed outpatient therapy. hospital course: Patient was admitted for left lower extremity cellulitis and failed outpatient antibiotics. Was treated with vancomycin clindamycin with significant improvement in pain swelling and erythema. We will be discharged home on 5 more days of Keflex and doxycycline. For nicotine dependence was given patch. For cocaine dependence was seen by Addiction team. Patient is feeling better and will be discharged home. Time Attestation Discharge Coordination Time (in mins): 32 Quality: Safe Use of Opioids Does Pt have an Active Cancer Diagnosis on the Problem List?: No Quality: Stroke Does the patient have a stroke diagnosis?: No Physical Exam Vital Signs: Vital Signs: Last Vital Signs Temp 97.8 F 09/12/24 07:06 Pulse 92 09/12/24 07:06 Resp 18 09/12/24 07:06 BP 170/80 H 09/12/24 07:06 Pulse Ox 99 09/12/24 07:06 O2 Del Method Room Air 09/12/24 07:06 BMI result Body Mass Index 30.3 General: AO X 3, no acute distress Resp: CTA bilateral, no accessory muscles used CVS: S1,S2,RRR GI: soft, non tender, non distended Neuro: motor grossly intact, alert Psych: appropriate affect, appropriate insight lle edema, erythema, tenderness - much improved DS: Data Data Completed and Pending Labs on day of discharge: Preliminary micro results at discharge 09/09/24 19:09 Blood Culture - Preliminary Blood - Venous No growth after 48 hours. 09/09/24 19:10 Blood Culture - Preliminary Blood - Venous No growth after 48 hours. Discharge Plan Discharge Anticipated Discharge Date/Time: 09/12/24 07:51 Patient Disposition: Home, Self-Care Discharge Diagnosis: LLE cellulitis Referrals: Physician,Unknown J [Primary Care Provider, Medical] - 1 Week Discharge Medications: New doxycycline hyclate 100 mg tablet 100 mg PO BID Qty: 10 0RF cephalexin 500 mg capsule 500 mg PO BID Qty: 10 0RF Discharge Orders: Discharge Order (Routine); Ordered 09/12/24 Ordered By: Severino Acevedo Diet: Advance to usual diet Activity on Discharge: As tolerated Stand Alone Forms: Patient Portal Discharge page Print Language: Latvian Care Plan Goals: recovery Health Concerns: LLE cellulitis Plan of Treatment: 5 more days of keflex and doxy Assessment: see above
--- NOTE | 2024-09-12 08:19 | MHC.CM.PN ---
Patient medically cleared for dc home self care via private transport.
== END 2024-09-12 09:53 | disposition home or self-care (01) | DRG 383 ==
LOC: HO.ED 16:42 → HO.EDOVER 18:25 → HO.S3 19:49
PROVIDERS: Nurse Practitioner Psychiatric/Mental Health; Registered Nurse Emergency; Admitting Provider Student in an Organized Health Care Education/Training Program; Emergency Provider Emergency Medicine; PCP Internal Medicine Infectious Disease; Visit Provider Internal Medicine
DX: L03.116 Cellulitis of left lower limb (principal); F14.10 Cocaine abuse, uncomplicated; F17.210 Nicotine dependence, cigarettes, uncomplicated; I10 Essential (primary) hypertension; F41.9 Anxiety disorder, unspecified; F32.A Depression, unspecified; Z71.6 Tobacco abuse counseling
CPT/HCPCS: 36415; 73701; 80048; 80053; 80202; 80307; 83735; 84702; 85025; 85027; 85610; 85652; 86140; 87040; 93971; 99285; J0696; J0736; J1171; J1650; J3373; J3374; Q9967; S9485

== ENCOUNTER → 2024-09-09 14:45 | Outpatient (BNV) | payer OTHER, SELFPAY | PROVIDERS: Emergency Provider Emergency Medicine; Visit Provider Radiology Diagnostic Radiology | DX: R22.42 Localized swelling, mass and lump, left lower limb (principal) | CPT/HCPCS: 93971 ==

== ENCOUNTER → 2024-09-09 18:17 | Outpatient (BNV) | payer OTHER, SELFPAY | PROVIDERS: Admitting Provider Student in an Organized Health Care Education/Training Program; Emergency Provider Emergency Medicine; Visit Provider Student in an Organized Health Care Education/Training Program | DX: L03.119 Cellulitis of unspecified part of limb (principal) | CPT/HCPCS: 99223; 99232; 99233; 99239 ==